=== PATIENT | female | born 1970 ===

== ENCOUNTER 2017-03-03 14:20 | Inpatient (IN) | payer OTHER ==
[2017-03-03] MEDS ORDERED: Vancomycin 1gm in NS 250ml 1 GM/250 ML BAG IVPB STA (15:52)
[2017-03-03] MEDS ORDERED: Sodium Chloride 0.9% 1,000 ML IV SCH (15:52)
[2017-03-03 16:28] LABS: VENOUS BLOOD GAS BASE EXCESS 4.8 mmol/L (0.0-2.0); VENOUS BLOOD PH 7.28 (7.32-7.43)
[2017-03-03 16:30] LABS: BASO # 0.02 K/mm3 (0.0-2.0); BASO % 0.2 % (0.0-3.0); EOS # 0.1 (0.0-0.7); GRAN # 5.86 (1.4-6.5); GRAN % 65.1 % (50.0-68.0); HEMATOCRIT 42.8 % (36.0-48.0); LYMPH # 2.5 (1.2-3.4); LYMPH % 27.9 % (22.0-35.0); MEAN CORPUSCULAR HGB CONC 33.6 g/dl (31.0-37.0); MEAN PLATELET VOLUME 9.6 fl (7.0-11.0); MONO # 0.5 (0.1-0.6); MONO % 5.8 % (1.0-6.0); RED CELL DISTRIBUTION WIDTH 12.1 % (11.5-14.5)
[2017-03-03 16:39] LABS: ALB/GLOB RATIO 1.1 (1.1-1.8); ALKALINE PHOSPHATASE 108 U/L (38-133); ALT/SGPT 60 U/L (7-56); AST/SGOT 46 U/L (15-39); BILIRUBIN,TOTAL 0.3 mg/dL (0.2-1.3); BLOOD UREA NITROGEN 11 mg/dL (7-21); CALCIUM 9.9 mg/dL (8.4-10.5); CARBON DIOXIDE 29 mmol/L (21-33); CHLORIDE 102 mmol/L (98-107); GFR AFRICAN-AMERICAN > 60; GLUCOSE,RANDOM 78 mg/dL (70-110); POTASSIUM 3.9 mmol/L (3.6-5.0); SODIUM 143 mmol/L (132-148); TOTAL PROTEIN 8.9 g/dL (5.8-8.3)
[2017-03-03 16:40] LABS: INR 0.88 (0.93-1.08); PARTIAL THROMBOPLASTIN TIME 25.4 Seconds (23.7-30.8)
--- NOTE | 2017-03-03 17:26 | ED PDOC ---
Arrival/HPI - General Chief Complaint: Abnormal Skin Integrity Time Seen by Provider: 03/03/17 15:16 Historian: Patient - History of Present Illness Narrative History of Present Illness (Text): 03/03/17 17:18 46 yo F with PMH of asthma c/o itchy red rash to b/l hands and forearms that occur every year, however she states that she developed 2 small red painful masses to the dorsal aspect of the L hand. Denies any fever, chills, joint pain , trauma, injury, recent travel, recent sick contact, URI symptoms, sore throat , CP, SOB, cat/dog bit, cat scratch. PMD [place] Past Medical History - Provider Review Nursing Documentation Reviewed: Yes - Tetanus Immunization Tetanus Immunization: Up to Date - Cardiac Hx Cardiac Disorders: No - Pulmonary Hx Asthma: Yes - Neurological Hx Neurological Disorder: No - HEENT Hx HEENT Disorder: No - Renal Other/Comment: kidney infections - Endocrine/Metabolic Hx Endocrine Disorders: No - Hematological/Oncological Hx Blood Disorders: No - Integumentary Hx Dermatological Disorder: No - Musculoskeletal/Rheumatological Hx Musculoskeletal Disorders: Yes Hx Arthritis: Yes - Gastrointestinal Hx Gastrointestinal Disorders: No - Genitourinary/Gynecological Hx Genitourinary Disorders: No - Psychiatric Hx Psychophysiologic Disorder: No Hx Substance Use: No - Surgical History Hx Tubal Ligation: Yes Family/Social History - Physician Review Nursing Documentation Reviewed: Yes Family/Social History: No Known Family HX Smoking Status: Light Smoker < 10 Cigarettes Daily Hx Alcohol Use: Yes Frequency of alcohol use: Socially Hx Substance Use: No Allergies/Home Meds Allergies/Adverse Reactions: Allergies iodine Allergy (Severe, Verified 03/03/17 14:52) ANAPHYLAXIS Penicillins Allergy (Severe, Verified 03/03/17 14:53) RASH banana Allergy (Verified 03/03/17 14:53) NAUSEA coffee (Coffea arabica) Allergy (Verified 03/03/17 14:53) NAUSEA Home Medications: Home Meds Medication Instructions Recorded Confirmed Gluc/Rudy-MSM#2/C/D3/Ubaldo/Born 1 tab PO DAILY 03/03/17 03/03/17 [[id number]-ZPW Tab] Vitamin B Complex [B Complex] 1 tab PO DAILY 03/03/17 03/03/17 Review of Systems - Review of Systems Constitutional: Normal. absent: Fatigue, Weight Change, Fevers Respiratory: Normal. absent: SOB, Cough, Sputum Cardiovascular: Normal. absent: Chest Pain, Palpitations, Edema Musculoskeletal: Normal. absent: Arthralgias, Back Pain, Neck Pain Skin: Normal, Rash, Abscess. absent: Pruritis, Skin Lesions Physical Exam Vital Signs Reviewed: Yes Vital Signs Temp Pulse Resp BP Pulse Ox 03/03/17 14:45 98.6 F 94 H 18 94/60 L 100 Temperature: Afebrile Blood Pressure: Normal Pulse: Regular Respiratory Rate: Normal Appearance: Positive for: Well-Appearing, Non-Toxic, Comfortable Pain Distress: None Mental Status: Positive for: Alert and Oriented X 3 - Systems Exam Head: Present: Atraumatic, Normocephalic Pupils: Present: PERRL Extroacular Muscles: Present: EOMI Conjunctiva: Present: Normal Mouth: Present: Moist Mucous Membranes Neck: Present: Normal Range of Motion. No: Meningeal Signs, Lymphadenopathy Respiratory/Chest: Present: Clear to Auscultation, Good Air Exchange. No: Respiratory Distress, Accessory Muscle Use, Wheezes, Rhonchi Cardiovascular: Present: Regular Rate and Rhythm, Normal S1, S2. No: Murmurs Back: Present: Normal Inspection. No: CVA Tenderness, Midline Tenderness, Paraspinal Tenderness Upper Extremity: Present: Normal ROM, NORMAL PULSES, Neurovascularly Intact, Capillary Refill < 2s, Norm 2-Pt Discrimination. No: Tenderness, Swelling, Temperature Abnormalties, Deformity Lower Extremity: Present: Normal Inspection, NORMAL PULSES, Normal ROM, Neurovascularly Intact, Capillary Refill < 2 s. No: Edema, Tenderness, Swelling , Erythema, Deformity, Temperature Abnormalties Neurological: Present: GCS=15, CN II-XII Intact, Motor Func Grossly Intact, Normal Sensory Function Skin: Present: Warm, Dry, Rashes (+erythematous lichenified rash to the dorsal aspect of b/l hand and forearm), Normal Color, Abscess (+3cm erythematous tender abscess to the dorsal aspect of the L hand over the 1st - 2nd metacarpal , +2 cm erythematous tender abscess to the dorsal aspect of the L hand over the 1st - 2nd metacarpal with surrounding cellulitis over the dorsal L hand and streaking noted to the volar L forearm ) Medical Decision Making ED Course and Treatment: 03/03/17 17:37 46 yo F with PMH of asthma c/o itchy red rash to b/l hands and forearms that occur every year, however she states that she developed 2 small red painful masses to the dorsal aspect of the L hand. Plan: - Labs - Blood cx - VBG - IVF - Vancomycin IV - XR L hand XR L hand : (-) acute findings, as read by PA. Labs results reviewed, wbc is wnl, lactate is nl. Diagnostic results d/w the pt in great detail. Based on history, exam and diagnostic results plan will be for inpt admission considering the 2 abscess to the dorsal L hand with cellulitis. Patient informed of the need for inpt admission for IV antibiotics and consult with surgery. residential gas heat technician paged and case was discussed. Consult placed to Dr. Callahan. Case d/w Dr. Fischer, agrees with plan for inpt admission. Patient states she fully agrees with and understands further plan and care, I have given the patient opportunity to ask any additional questions. - Lab Interpretations Lab Results: 03/03/17 16:00 03/03/17 16:00 Lab Results 03/03/17 16:00: pO2 22 L, VBG pH 7.28 L, VBG pCO2 70.0 H*, VBG HCO3 34.3 H, VBG Total CO2 36.5 H, VBG O2 Sat (Calc) 42.1, VBG Base Excess 4.8 H, VBG Potassium 3.9, Sodium 142.0, Chloride 105.0, Glucose 79, Lactate 1.0, FiO2 21.0, Venous Blood Potassium 3.9 03/03/17 16:00: PT 9.5 L, INR 0.88 L, APTT 25.4 03/03/17 16:00: WBC 9.0, RBC 4.65, Hgb 14.4, Hct 42.8, MCV 92.0, MCH 31.0, MCHC 33.6, RDW 12.1, Plt Count 314, MPV 9.6, Gran % 65.1, Lymph % (Auto) 27.9, Gilchrist % (Auto) 5.8, Eos % (Auto) 1.0 L, Baso % (Auto) 0.2, Gran # 5.86, Lymph # 2.5, Gilchrist # 0.5, Eos # 0.1, Baso # 0.02 03/03/17 16:00: Sodium 143, Chloride 102, Potassium 3.9, Carbon Dioxide 29, Anion Gap 16, BUN 11, Creatinine 0.6, Est GFR ( Amer) > 60, Est GFR (Non- Af Amer) > 60, Random Glucose 78, Calcium 9.9, Total Bilirubin 0.3, AST 46 H, ALT 60 H, Alkaline Phosphatase 108, Total Protein 8.9 H, Albumin 4.7, Globulin 4.2, Albumin/Globulin Ratio 1.1 - RAD Interpretation Radiology Orders: 03/03/17 15:54 HAND LEFT 3 VIEWS ROUTINE [RAD] Stat - Medication Orders Current Medication Orders: Sodium Chloride (Sodium Chloride 0.9%) 1,000 mls @ 1,000 mls/hr IV .Q1H LY Last Admin: 03/03/17 16:19 Dose: 1,000 mls/hr Vancomycin HCl (Vancomycin 1gm) 1 gm in 250 mls @ 167 mls/hr IVPB STAT STA PRN Reason: Protocol Stop: 03/03/17 17:21 Last Admin: 03/03/17 16:19 Dose: 167 mls/hr Discontinued Medications Ketorolac Tromethamine (Toradol) 30 mg IVP STAT STA Stop: 03/03/17 15:55 Last Admin: 03/03/17 16:19 Dose: 30 mg - PA / ABAP DEVELOPER / Resident Statement MD/DO has reviewed & agrees with the documentation as recorded. Disposition/Present on Arrival - Present on Arrival Any Indicators Present on Arrival: No History of DVT/PE: No History of Uncontrolled Diabetes: No Urinary Catheter: No History of Decub. Ulcer: No History Surgical Site Infection Following: None - Disposition Have Diagnosis and Disposition been Completed?: Yes Diagnosis: Abscess of hand, left, Cellulitis Disposition: HOSPITALIZED Disposition Time: 17:00 Patient Plan: Admission Condition: STABLE Discharge Instructions (ExitCare): Cellulitis (ED) Referrals: Nick Elliott MD [Primary Care Provider] - Follow up with primary Forms: Inc[employer] (Irish)
--- NOTE | 2017-03-03 17:34 | CP.PCM.CON ---
History of Present Illness - History of Present Illness History of Present Illness: General Surgery Consult for Dr. Jameson Hardy, PGY 1 Pt S & E at bedside. 46F w/PMH sig for asthma, arthritis consulted for itching, erythema, and burning in B/L upper extremities from elbow to digits x 1 mo. Pt reports symptoms have been progressively worsening. 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 Pt reports experiencing symptoms like this annually during the summer months, though previous episodes have resolved spontaneously and were painless. Pain not alleviated by Vaseline cream, cortisone cream, and peroxide on the area. Admits anorexia, tingling in left hand. Denies f/c/n/v/d, environmental exposures, changes in ROM of hands/ arms. PMH: Asthma, arthritis PSH: Tubal ligation, salivary gland surgery All: NKDA SH: Admits to 3 cigarettes daily, occasional EtOH use, denies illicit drug use Review of Systems - Review of Systems All systems: reviewed and no additional remarkable complaints except () - Constitutional Constitutional: absent: Chills, Fever - EENT Eyes: absent: Change in Vision - Cardiovascular Cardiovascular: absent: Chest Pain - Respiratory Respiratory: absent: Cough - Gastrointestinal Gastrointestinal: absent: Abdominal Pain, Nausea, Vomiting - Genitourinary Genitourinary: absent: Change in Urinary Stream - Musculoskeletal Musculoskeletal: Limited Range of Motion (of B/L UE) - Integumentary Integumentary: New Lesions, Pruritus, Skin Pain, Sores, Swelling, Wounds - Neurological Neurological: absent: Dizziness Past Patient History - Past Social History Smoking Status: Light Smoker < 10 Cigarettes Daily - CARDIAC Hx Cardiac Disorders: No - PULMONARY Hx Asthma: Yes - NEUROLOGICAL Hx Neurological Disorder: No - HEENT Hx HEENT Problems: No - RENAL Other/Comment: kidney infections - ENDOCRINE/METABOLIC Hx Endocrine Disorders: No - HEMATOLOGICAL/ONCOLOGICAL Hx Blood Disorders: No - INTEGUMENTARY Hx Dermatological Problems: No - MUSCULOSKELETAL/RHEUMATOLOGICAL Hx Musculoskeletal Disorders: Yes Hx Arthritis: Yes - GASTROINTESTINAL Hx Gastrointestinal Disorders: No - GENITOURINARY/GYNECOLOGICAL Hx Genitourinary Disorders: No - PSYCHIATRIC Hx Psychophysiologic Disorder: No Hx Substance Use: No - SURGICAL HISTORY Hx Tubal Ligation: Yes Meds Allergies/Adverse Reactions: Allergies Allergy/AdvReac Type Severity Reaction Status Date / Time iodine Allergy Severe ANAPHYLAXIS Verified 03/03/17 14:52 Penicillins Allergy Severe RASH Verified 03/03/17 14:53 banana Allergy NAUSEA Verified 03/03/17 14:53 coffee (Coffea arabica) Allergy NAUSEA Verified 03/03/17 14:53 - Medications Medications: Current Medications Sodium Chloride (Sodium Chloride 0.9%) 1,000 mls @ 1,000 mls/hr IV .Q1H LY Last Admin: 03/03/17 16:19 Dose: 1,000 mls/hr Physical Exam - Constitutional Appears: Non-toxic, No Acute Distress - Head Exam Head Exam: ATRAUMATIC, NORMAL INSPECTION, NORMOCEPHALIC - Eye Exam Eye Exam: EOMI, Normal appearance. absent: Conjunctival injection - ENT Exam ENT Exam: Mucous Membranes Moist - Neck Exam Neck exam: Positive for: Normal Inspection - Respiratory Exam Respiratory Exam: NORMAL BREATHING PATTERN. absent: Accessory Muscle Use - Cardiovascular Exam Cardiovascular Exam: absent: Bradycardia, Tachycardia - GI/Abdominal Exam GI & Abdominal Exam: Soft. absent: Distended, Guarding, Rebound - Extremities Exam Extremities exam: Positive for: full ROM, normal capillary refill. Negative for : pedal edema Additional comments: non-pitting edema in L hand, R hand without edema - Neurological Exam Neurological exam: Alert, CN II-XII Intact, Oriented x3 Additional comments: sensation intact dermatomes C5 T1, muscle strength 5/5 in R upper extremity and 4/5 in L upper extremity secondary to pain - Psychiatric Exam Psychiatric exam: Normal Affect, Normal Mood - Skin Skin Exam: Dry, Erythema, Urticaria, Warm Additional comments: B/L forearms erythematous from elbows to digits. Several excoriations on both forearms w/o active drainage. Area of induration 0.5cm x 0.5 cm on L 1st digit interspace. Fluctuant lesion 1cm x 1cm on posterior aspect of thenar eminence. Left thenar eminence and forearm exquisitely TTP. Results - Vital Signs Recent Vital Signs: Last Vital Signs Temp 98.6 F 03/03/17 14:45 Pulse 94 H 03/03/17 14:45 Resp 18 03/03/17 14:45 BP 94/60 L 03/03/17 14:45 Pulse Ox 100 03/03/17 14:45 - Labs Result Diagrams: 03/03/17 16:00 03/03/17 16:00 Labs: Laboratory Results - last 24 hr 03/03/17 03/03/17 03/03/17 16:00 16:00 16:00 WBC 9.0 RBC 4.65 Hgb 14.4 Hct 42.8 MCV 92.0 MCH 31.0 MCHC 33.6 RDW 12.1 Plt Count 314 MPV 9.6 Gran % 65.1 Lymph % (Auto) 27.9 [place] % (Auto) 5.8 Eos % (Auto) 1.0 L Baso % (Auto) 0.2 Gran # 5.86 Lymph # 2.5 Republic # 0.5 Eos # 0.1 Baso # 0.02 PT 9.5 L INR 0.88 L APTT 25.4 pO2 VBG pH VBG pCO2 VBG HCO3 VBG Total CO2 VBG O2 Sat (Calc) VBG Base Excess VBG Potassium Sodium 143 Chloride 102 Glucose Lactate FiO2 Potassium 3.9 Carbon Dioxide 29 Anion Gap 16 BUN 11 Creatinine 0.6 Est GFR ( Amer) > 60 Est GFR (Non-Af Amer) > 60 Random Glucose 78 Calcium 9.9 Total Bilirubin 0.3 AST 46 H ALT 60 H Alkaline Phosphatase 108 Total Protein 8.9 H Albumin 4.7 Globulin 4.2 Albumin/Globulin Ratio 1.1 Venous Blood Potassium 03/03/17 16:00 WBC RBC Hgb Hct MCV MCH MCHC RDW Plt Count MPV Gran % Lymph % (Auto) [place] % (Auto) Eos % (Auto) Baso % (Auto) Gran # Lymph # Republic # Eos # Baso # PT INR APTT pO2 22 L VBG pH 7.28 L VBG pCO2 70.0 H* VBG HCO3 34.3 H VBG Total CO2 36.5 H VBG O2 Sat (Calc) 42.1 VBG Base Excess 4.8 H VBG Potassium 3.9 Sodium 142.0 Chloride 105.0 Glucose 79 Lactate 1.0 FiO2 21.0 Potassium Carbon Dioxide Anion Gap BUN Creatinine Est GFR ( Amer) Est GFR (Non-Af Amer) Random Glucose Calcium Total Bilirubin AST ALT Alkaline Phosphatase Total Protein Albumin Globulin Albumin/Globulin Ratio Venous Blood Potassium 3.9 Assessment & Plan - Assessment and Plan (Free Text) Assessment: 46 yo F PMH: asthma, arthritis, consulted for L forearm abscess secondary to cellulitis. Plan: No surgical intervention at this time Abx Pain mgmt Warm compresses to area OT for hand Will monitor DW attending. Hayley, PGY 1 - Date & Time Date: 03/03/17 Time: 17:41
--- NOTE | 2017-03-03 18:26 | RAD ---
PROCEDURE: Left Hand Radiographs. HISTORY: pain COMPARISON: None. FINDINGS: BONES: Normal mineralization alignment. No acute fracture. JOINTS: Normal. No osteoarthritic changes. SOFT TISSUES: Normal. OTHER FINDINGS: None. IMPRESSION: No acute fracture or dislocation.
[2017-03-03] MEDS ORDERED: DiphenhydrAMINE 12.5 mg/5 ml LIQ UD (5 ml) PO STA (18:28)
[2017-03-03] MEDS ORDERED: Sodium Chloride 0.9% 1,000 ML IV STA (18:39)
--- NOTE | 2017-03-03 19:39 | CP.PCM.CON ---
History of Present Illness - History of Present Illness History of Present Illness: Infectious Disease Consultation: March 03, 2017 46 yo female with swelling, erythema, and pain to the left hand, wrist, and forearm. There is an ezcematous rash on the left arm as well. The patient has difficulty bending at the wrist as well. The patient has a penicillin allergy which leads to rashes. The cellulitis started about 3 days ago with developing pain. PMHx: asthma, arthritis PSHx: tubal ligation, salivary gland surgery. Allergies: PCN, shellfish, banana, coffee (Coffea Arabica), Iodine Social Hx: Tobacco use 3 cig/day for at least 30 years. No illicit drugs Social EtOH Active Medications Diphenhydramine HCl (Benadryl) 25 mg PO Q6H PRN PRN Reason: Allergy symptoms Doxycycline Hyclate 100 mg/ (Sodium Chloride) 100 mls @ 100 mls/hr IVPB Q12 LY PRN Reason: Protocol Vancomycin HCl (Vancomycin 1gm) 1 gm in 250 mls @ 167 mls/hr IVPB Q24H LY PRN Reason: Protocol Sodium Chloride (Sodium Chloride 0.9%) 1,000 mls @ 1,000 mls/hr IV .Q1H STA Stop: 03/03/17 19:38 Ibuprofen (Motrin Tab) 200 mg PO Q6 PRN PRN Reason: Pain, moderate (4-7) Pantoprazole Sodium (Protonix Ec Tab) 40 mg PO 0600 [facility] Family Hx: asth,a arthritis ROS: No fevers, chills, nausea, vomiting, diarrhea, headaches, dizziness, chest pain , abdominal pain, melena, hematuria, hematemesis, hematochezia, depression, anxiety. Past Patient History - Tetanus Immunizations Tetanus Immunization: Up to Date - Past Social History Smoking Status: Light Smoker < 10 Cigarettes Daily - CARDIAC Hx Cardiac Disorders: No - PULMONARY Hx Asthma: Yes - NEUROLOGICAL Hx Neurological Disorder: No - HEENT Hx HEENT Problems: No - RENAL Other/Comment: kidney infections - ENDOCRINE/METABOLIC Hx Endocrine Disorders: No - HEMATOLOGICAL/ONCOLOGICAL Hx Blood Disorders: No - INTEGUMENTARY Hx Dermatological Problems: No - MUSCULOSKELETAL/RHEUMATOLOGICAL Hx Musculoskeletal Disorders: Yes Hx Arthritis: Yes - GASTROINTESTINAL Hx Gastrointestinal Disorders: No - GENITOURINARY/GYNECOLOGICAL Hx Genitourinary Disorders: No - PSYCHIATRIC Hx Psychophysiologic Disorder: No Hx Substance Use: No - SURGICAL HISTORY Hx Tubal Ligation: Yes Meds Allergies/Adverse Reactions: Allergies Allergy/AdvReac Type Severity Reaction Status Date / Time iodine Allergy Severe ANAPHYLAXIS Verified 03/03/17 14:52 Penicillins Allergy Severe RASH Verified 03/03/17 14:53 banana Allergy NAUSEA Verified 03/03/17 14:53 coffee (Coffea arabica) Allergy NAUSEA Verified 03/03/17 14:53 - Medications Medications: Current Medications Diphenhydramine HCl (Benadryl) 25 mg PO Q6H PRN PRN Reason: Allergy symptoms Doxycycline Hyclate 100 mg/ (Sodium Chloride) 100 mls @ 100 mls/hr IVPB Q12 LY PRN Reason: Protocol Vancomycin HCl (Vancomycin 1gm) 1 gm in 250 mls @ 167 mls/hr IVPB Q24H LY PRN Reason: Protocol Sodium Chloride (Sodium Chloride 0.9%) 1,000 mls @ 1,000 mls/hr IV .Q1H STA Stop: 03/03/17 19:38 Ibuprofen (Motrin Tab) 200 mg PO Q6 PRN PRN Reason: Pain, moderate (4-7) Pantoprazole Sodium (Protonix Ec Tab) 40 mg PO 0600 LY Physical Exam - Constitutional Appears: Non-toxic, No Acute Distress - Head Exam Head Exam: ATRAUMATIC, NORMOCEPHALIC - Eye Exam Eye Exam: EOMI, PERRL Pupil Exam: NORMAL ACCOMODATION, PERRL - ENT Exam ENT Exam: Mucous Membranes Moist, Normal External Ear Exam, TM's Normal Bilaterally - Neck Exam Neck exam: Positive for: Full Rom, Normal Inspection - Respiratory Exam Respiratory Exam: Clear to Auscultation Bilateral, NORMAL BREATHING PATTERN. absent: Rales, Rhonchi, Wheezes - Cardiovascular Exam Cardiovascular Exam: REGULAR RHYTHM, RRR, +S1, +S2 - GI/Abdominal Exam GI & Abdominal Exam: Normal Bowel Sounds, Soft. absent: Distended, Tenderness - Extremities Exam Additional comments: left arm with limited ROM of the left wrist and to a lesser degree the left elbow. There is swelling, erythema, warmth, and tenderness of the left forearm , wrist, and hand (especially at the thenar eminence). The patient has a prominent swelling of the thenar eminence. - Neurological Exam Neurological exam: Alert, CN II-XII Intact, Normal Gait, Oriented x3 - Psychiatric Exam Psychiatric exam: Normal Affect, Normal Mood - Skin Additional comments: as per extremity exam. Results - Vital Signs Recent Vital Signs: Last Vital Signs Temp 98.6 F 03/03/17 14:45 Pulse 93 H 03/03/17 18:35 Resp 18 03/03/17 18:35 BP 104/65 03/03/17 18:35 Pulse Ox 100 03/03/17 18:35 - Labs Result Diagrams: 03/03/17 16:00 03/03/17 16:00 Assessment & Plan - Assessment and Plan (Free Text) Assessment: 46 yo female with cellulitis and possible abscess of thenar eminence of the left hand with tracking up the arm. The patient has a PCN allergy. The patient was started on IV Vancomycin for treatment. Local wound care. No surgical intervention as per surgery consult. Supportive care. Thank you for allowing me to participate in the care of the patient, we will follow with you.
[2017-03-03 21:36] VITALS: BMI 26.5
[2017-03-03] MEDS ORDERED: Pneumococcal 23-Valent Vaccine IM ONE (21:36)
[2017-03-03] MEDS: DiphenhydrAMINE 12.5 mg/5 ml LIQ UD (5 ml) PO PRN (22:15)
--- NOTE | 2017-03-03 23:24 | CP.PCM.HP ---
<Mahin Elena - Last Filed: 03/03/17 23:16> History of Present Illness - History of Present Illness History of Present Illness: Internal Medicine Note for Dr. Fung - MERI DO PGY 1 HPI: 46 F w/o pertinent signifcant PMHx presents with c/o b/l UE rash, more severe on the left. Patient states that she has a rash on b/l forearms. She states that she gets this same rash every year in the summer time and attributes it to sunlight. Patient states that the rash is both pruritic and painful, and that she has been using OTC steroid cream which has provided some relief. Patient further complains of a rash on her L hand that is more painful and irritating than the rash on her b/l LE. Patient states that this rash is not consistent with her usual rash on her b/l forearms that she gets every year. Patient states that the hand rash has not gotten better with topical steroid cream and that it is extremely tender to touch. She further states that the rash started about a week ago. Patient denies any sick contacts, denies f/ch/n/ v/d/cp/sob, and any other symptoms at this time. PSHx: B/l oophorectomy; neck surgery, uncertain of the details PMHx: Asthma, Arthritis All: PCNs, seafood, banana, coffee, iodine SocHx: Smokes 3 cigarettes a day, drinks alcohol only on Saturdays. Denies any illicits FamHx: DM, Arthritis, Asthma Meds: B12 ROS: Constitutional: pt denies fever, chills, generalized weakness ENT: pt denies dysphagia, otalgia, hearing deficit, rhinorrhea Eyes: pt denies sudden loss of vision, diplopia, blurred vision MSK: +HPI Cardio: pt denies sob, heart murmur, cp Pulm: pt denies cough, hemoptysis, wheeze GI: pt denies loss of appetite, abdominal pain, constipation, melena, n/v/d : pt denies burning on urination, urinary frequency, hematuria, urinary urgency Neuro: pt denies paresis, paresthesia, dizziness, miller, numbness, tingling Derm: pt denies skin changes, lesions, nail changes Endo: pt denies intolerance to heat/cold, diaphoresis, night sweats, polydipsia Psych: pt denies anxiety, depression, mood changes Present on Admission - Present on Admission Any Indicators Present on Admission: No Past Patient History - Tetanus Immunizations Tetanus Immunization: Up to Date - Past Social History Smoking Status: Light Smoker < 10 Cigarettes Daily - CARDIAC Hx Cardiac Disorders: No - PULMONARY Hx Asthma: Yes - NEUROLOGICAL Hx Neurological Disorder: No - HEENT Hx HEENT Problems: No - RENAL Other/Comment: kidney infections - ENDOCRINE/METABOLIC Hx Endocrine Disorders: No - HEMATOLOGICAL/ONCOLOGICAL Hx Blood Disorders: No - INTEGUMENTARY Hx Dermatological Problems: Yes Other/Comment: rash to both forearms and hands, left hand swelling with 2 red raised swollen areas to hand, rash is itchy, chronic every summer since 30 years old, first time left hand is swollen, red line from wrist up forrearm numbness to fingers and arm - MUSCULOSKELETAL/RHEUMATOLOGICAL Hx Musculoskeletal Disorders: Yes Hx Arthritis: Yes (b/l wrists, left elbow, knees, feet) Hx Falls: No - GASTROINTESTINAL Hx Gastrointestinal Disorders: No - GENITOURINARY/GYNECOLOGICAL Hx Genitourinary Disorders: No - PSYCHIATRIC Hx Psychophysiologic Disorder: No Hx Substance Use: No - SURGICAL HISTORY Hx Surgeries: Yes (tubal ligation) Meds Allergies/Adverse Reactions: Allergies Allergy/AdvReac Type Severity Reaction Status Date / Time iodine Allergy Severe ANAPHYLAXIS Verified 03/03/17 14:52 Penicillins Allergy Severe RASH Verified 03/03/17 14:53 banana Allergy NAUSEA Verified 03/03/17 14:53 coffee (Coffea arabica) Allergy NAUSEA Verified 03/03/17 14:53 Physical Exam - Additional Findings Additional findings: Phys Exam: VS as below Constitutional: Pt appears fidgety and restless; Loquacious; Pleasant but dramatic affect; a&o x 4, nad Head and Neck: +Red, pruritic rash that crosses midline on her neck; neck supple , no jvd, trachea midline, carotid midline, no cervical/head mass Eyes: mireya, nonicteric sclera, eom intact ENT: auditory acuity grossly intact, throat not congested, no nasal deformity Cardio: rrr, no m/r/g, no carotid bruit, nml s1, s2 Pulm: no accessory muscle use, equal nml breath sounds bilaterally, ctab Abd: s/nt/nd, nbs x 4 q, no palpable masses Derm: +See extremity exam Extr: B/l UE red, peeling rash resembling sunburn on forearms. Left hand has a nodule on the dorsal aspect of the first digit. No purulent discharge, no fluctuance. Neuro: cn II-XII grossly intact, ue and le 5/5 muscle strength bilaterally, no los ue, le bilaterally and core Results - Vital Signs Recent Vital Signs: Last Vital Signs Temp 97.9 F 03/03/17 21:20 Pulse 70 03/03/17 21:20 Resp 20 03/03/17 21:20 BP 150/89 03/03/17 21:20 Pulse Ox 100 03/03/17 19:27 - Labs Result Diagrams: 03/03/17 16:00 03/03/17 16:00 Assessment & Plan - Assessment and Plan (Free Text) Assessment: 46 F presents for evaluation of b/l UE rash and L hand rash Plan: 1. Cellulitis VS Heat rash - XR: shows no fracture or acute disease - Benadryl ordered for rash and in case of allergy to any medications - Vanc, Doxy empiric treatment - Pain mgmt: Ibuprofen 200 - ID C/s: Dr. Overton 2. Hx/O Asthma - Duonebs Q6H LY and Q2H PRN - ABG showed respiratory acidosis with metabolic compensation - Does not correlate clinically. Re-ordered - UDS ordered as well 3. Hx/O Arthritis - C/w home glucosamine - VICTOR HUGO, RF ordered in light of her photosensitive rash and hx/o arthritis 4. Hx/O Hypovitaminosis B12 - C/w home B12 5. Hx/O Hep C - No acute intervention - LFT's elevated - trend - Abdominal u/s 6. GI/DVT PPHXS - SCDs/Protonix Dispo: If patient's rash responds to ABx, consider d/c tomorrow, 03/03/17 on PO Clindamycin Diet: Normal Case d/w Dr. Fung TKS, DO PGY - 1 <Laura Fung - Last Filed: 03/04/17 11:16> Results - Vital Signs Recent Vital Signs: Last Vital Signs Temp 98.5 F 03/04/17 08:00 Pulse 70 03/04/17 08:00 Resp 18 03/04/17 08:00 BP 132/95 H 03/04/17 08:00 Pulse Ox 98 03/04/17 08:00 - Labs Result Diagrams: 03/04/17 08:20 03/04/17 08:20 Labs: Laboratory Results - last 24 hr 03/04/17 03/04/17 08:20 08:20 WBC 7.4 RBC 4.06 Hgb 12.1 D Hct 36.7 MCV 90.4 MCH 29.8 MCHC 33.0 RDW 11.9 Plt Count 234 MPV 9.6 Gran % 53.1 Lymph % (Auto) 37.7 H Izard % (Auto) 7.1 H Eos % (Auto) 1.8 Baso % (Auto) 0.3 Gran # 3.91 Lymph # 2.8 Izard # 0.5 Eos # 0.1 Baso # 0.02 Sodium 141 Potassium 3.8 Chloride 107 Carbon Dioxide 24 Anion Gap 14 BUN 9 Creatinine 0.5 Est GFR ( Amer) > 60 Est GFR (Non-Af Amer) > 60 Random Glucose 82 Calcium 8.3 L Phosphorus 3.8 Magnesium 1.8 Total Bilirubin 0.3 AST 31 ALT 42 Alkaline Phosphatase 89 Total Protein 6.9 Albumin 3.6 Globulin 3.3 Albumin/Globulin Ratio 1.1 Attending/Attestation - Attestation I have personally seen and examined this patient.: Yes I have fully participated in the care of the patient.: Yes I have reviewed all pertinent clinical information: Yes Notes (Text): 03/03/17 46 year old female with past medical history of arthritis and asthma who presents with bilateral upper extremity rash and left hand cellulitis. ID and surgery evaluation are requested. Hand xray shows no fracture or acute disease. Will start on iv antibiotics. She had mild elevation of LFTs. Admits to drinking socially. Will obtain alcohol level, urine drug screen and hepatitis panel. Continue to monitor LFTs closely. Continue with duonebs prn for history of asthma. Laura Fung MD Hospitalist.
[2017-03-03] MEDS ORDERED: Albuterol-Ipratrop 3 mg / 0.5 (3 ml) UD IH PRN (23:36)
[2017-03-04] MEDS: Albuterol-Ipratrop 3 mg / 0.5 (3 ml) UD IH SCH ×4 (01:05→20:00)
[2017-03-04] MEDS: DiphenhydrAMINE 12.5 mg/5 ml LIQ UD (5 ml) PO PRN (04:46)
[2017-03-04] MEDS: Vancomycin 1gm in NS 250ml 1 GM/250 ML BAG IVPB SCH (05:16)
--- NOTE | 2017-03-04 07:16 | CP.PCM.PN ---
Subjective - Date & Time of Evaluation Date of Evaluation: 03/04/17 Time of Evaluation: 07:16 - Subjective Subjective: General Surgery Dr. Callahan Pt S&E @bedside. NAEO. pain, erythema improved. admits to tingling digits 1-3, pruritus. denies F/C, N/V, D/C. denies decreased ROM. tolerating diet. Objective - Vital Signs/Intake and Output Vital Signs (last 24 hours): Temp Pulse Resp BP Pulse Ox 97.9 F 70 20 150/89 100 03/03/17 21:20 03/03/17 21:20 03/03/17 21:20 03/03/17 21:20 03/03/17 19:27 Intake and Output: 03/04/17 03/04/17 06:59 18:59 Intake Total 120 Balance 120 - Medications Medications: Current Medications Albuterol/Ipratropium (Duoneb 3 Mg/0.5 Mg (3 Ml) Ud) 3 ml IH [id number] LY Last Admin: 03/04/17 01:05 Dose: 3 ml Albuterol/Ipratropium (Duoneb 3 Mg/0.5 Mg (3 Ml) Ud) 3 ml IH Q2H PRN PRN Reason: Shortness of Breath Diphenhydramine HCl (Benadryl) 25 mg PO Q6H PRN PRN Reason: Allergy symptoms Last Admin: 03/04/17 04:46 Dose: 25 mg Doxycycline Hyclate 100 mg/ (Sodium Chloride) 100 mls @ 100 mls/hr IVPB Q12 LY PRN Reason: Protocol Last Admin: 03/03/17 22:14 Dose: 100 mls/hr Vancomycin HCl (Vancomycin 1gm) 1 gm in 250 mls @ 167 mls/hr IVPB Q24H LY PRN Reason: Protocol Last Admin: 03/04/17 05:16 Dose: 167 mls/hr Ibuprofen (Motrin Tab) 200 mg PO Q6 PRN PRN Reason: Pain, moderate (4-7) Last Admin: 03/04/17 04:46 Dose: 200 mg Non-Formulary Medication (Gluc/Rudy-Msm#2/C/D3/Ubaldo/Born [Glucosamin-Chondroitin -Msm Tab]) 1 tab PO DAILY [facility] Pantoprazole Sodium (Protonix Ec Tab) 40 mg PO 0600 [facility] Vitamin B Complex/Vit C/Folic Acid (Nephro-Juan) 1 tab PO DAILY LY - Labs Labs: PT 9.5 Seconds (9.9-11.8) L 03/03/17 16:00 INR 0.88 (0.93-1.08) L 03/03/17 16:00 APTT 25.4 Seconds (23.7-30.8) 03/03/17 16:00 - Constitutional Appears: Non-toxic, No Acute Distress - Head Exam Head Exam: NORMAL INSPECTION - Eye Exam Eye Exam: Normal appearance - ENT Exam ENT Exam: Mucous Membranes Moist - Respiratory Exam Respiratory Exam: NORMAL BREATHING PATTERN. absent: Accessory Muscle Use, Respiratory Distress - GI/Abdominal Exam GI & Abdominal Exam: Soft. absent: Distended - Extremities Exam Additional comments: L forearm cellulitis, erythema, excoriations. lesion x2 L thumb. indurated, no fluctuance. edema of L hand - Neurological Exam Neurological Exam: Alert, Awake, Oriented x3 - Psychiatric Exam Psychiatric exam: Normal Affect, Normal Mood - Skin Skin Exam: Dry, Intact, Warm Assessment and Plan - Assessment and Plan (Free Text) Assessment: 46 y/o F w/ L forearm cellulitis and L hand lesions - cont warm compresses - cont IV abx - Benadryl for pruritus - pain management - cont medical mamagement - no surgical intervention at this time Pt discussed w/ Dr. London Sawyer DO PGY2
--- NOTE | 2017-03-04 08:01 | CP.PCM.PN ---
<Jolly Biswas - Last Filed: 03/04/17 15:43> Subjective - Date & Time of Evaluation Date of Evaluation: 03/04/17 Time of Evaluation: 08:30 - Subjective Subjective: PGY2 Progress note for Dr. Fung Patient seen and examined at bedside. Patient reports left hand swelling is worsening and she continues to have decreased rn palliative strength and pruritus. She continues to have pain with hand flexion. She denies fever, chills, headache, dizziness, chest pain, palpitations, SOB, cough, abdominal pain, nausea, vomiting, bowel/bladder complaints, pain/swelling in her legs bilaterally. Patient is tolerating diet. Objective - Vital Signs/Intake and Output Vital Signs (last 24 hours): Temp Pulse Resp BP Pulse Ox 98.5 F 70 18 132/95 H 98 03/04/17 08:00 03/04/17 08:00 03/04/17 08:00 03/04/17 08:00 03/04/17 08:00 Intake and Output: 03/04/17 03/04/17 06:59 18:59 Intake Total 120 Balance 120 - Medications Medications: Current Medications Albuterol/Ipratropium (Duoneb 3 Mg/0.5 Mg (3 Ml) Ud) 3 ml IH [id number] LY Last Admin: 03/04/17 07:57 Dose: 3 ml Albuterol/Ipratropium (Duoneb 3 Mg/0.5 Mg (3 Ml) Ud) 3 ml IH Q2H PRN PRN Reason: Shortness of Breath Diphenhydramine HCl (Benadryl) 25 mg PO Q6H PRN PRN Reason: Allergy symptoms Last Admin: 03/04/17 04:46 Dose: 25 mg Doxycycline Hyclate 100 mg/ (Sodium Chloride) 100 mls @ 100 mls/hr IVPB Q12 LY PRN Reason: Protocol Last Admin: 03/03/17 22:14 Dose: 100 mls/hr Vancomycin HCl (Vancomycin 1gm) 1 gm in 250 mls @ 167 mls/hr IVPB Q24H LY PRN Reason: Protocol Last Admin: 03/04/17 05:16 Dose: 167 mls/hr Ibuprofen (Motrin Tab) 200 mg PO Q6 PRN PRN Reason: Pain, moderate (4-7) Last Admin: 03/04/17 04:46 Dose: 200 mg Non-Formulary Medication (Gluc/Rudy-Msm#2/C/D3/Ubaldo/Born [Glucosamin-Chondroitin -Msm Tab]) 1 tab PO DAILY [facility] 234 BEDS AT [facility] Pantoprazole Sodium (Protonix Ec Tab) 40 mg PO 0600 [facility]S [facility]CLUDE 234 BEDS AT [facility] Vitamin B Complex/Vit C/Folic Acid (Nephro-Juan) 1 tab PO DAILY LY - Labs Labs: PT 9.5 Seconds (9.9-11.8) L 03/03/17 16:00 INR 0.88 (0.93-1.08) L 03/03/17 16:00 APTT 25.4 Seconds (23.7-30.8) 03/03/17 16:00 - Additional Findings Additional findings: VS as below Constitutional: Pt appears fidgety and restless; Loquacious; Pleasant but dramatic affect; a&o x 4, nad Head and Neck: +Red, pruritic rash that crosses midline on her neck; neck supple , no jvd, trachea midline, carotid midline, no cervical/head mass Eyes: mireya, nonicteric sclera, eom intact ENT: auditory acuity grossly intact, throat not congested, no nasal deformity Cardio: rrr, no m/r/g, no carotid bruit, nml s1, s2 Pulm: no accessory muscle use, equal nml breath sounds bilaterally, ctab Abd: s/nt/nd, nbs x 4 q, no palpable masses Derm: +See extremity exam Extr: B/l UE red, peeling rash resembling sunburn on forearms. Left hand has a nodule on the dorsal aspect of the first digit. No purulent discharge, no fluctuance. Neuro: cn II-XII grossly intact, ue and le 5/5 muscle strength bilaterally, no los ue, le bilaterally and core Assessment and Plan - Assessment and Plan (Free Text) Assessment: 46 year old female PMHx asthma, arthritis presented with b/l UE rash worse on the Left Plan: Left hand cellulitis - Vancomycin 1gm ivpb q24 Day 1 - Doxycycline 100mg ivpb q12 Day 2 - Motrin 200mg po q6 prn pain - Benadryl 25mg po q6 prn pruritus - Florastor 1 cap po bid - Left Hand x-ray 03/03: no acute fracture/dislocation - Patient for I&D today- will f/u wound studies - Surgery Dr. Callahan consulted - ID Dr. Overton consulted Hx of Asthma - Duoneb 3ml inh q6 LY - Duoneb 3ml inh q2 prn Hx of Arthritis - Glucosamine 1 tab po daily - VICTOR HUGO, RF ordered in light of her photosensitive rash and hx/o arthritis Hx of Hep C - Hep C Ab + - LFT's elevated - trend - f/u Abdominal u/s - f/u UDS GI ppx: Protonix 40mg po daily DVT ppx: SCDs Diet: Regular diet Discussed with Dr. Kenton Biswas PGY2 <Laura Fung - Last Filed: 03/04/17 16:16> Objective - Vital Signs/Intake and Output Vital Signs (last 24 hours): Temp Pulse Resp BP Pulse Ox 98.5 F 70 18 132/95 H 98 03/04/17 08:00 03/04/17 08:00 03/04/17 08:00 03/04/17 08:00 03/04/17 08:00 Intake and Output: 03/04/17 03/04/17 06:59 18:59 Intake Total 120 600 Balance 120 600 - Medications Medications: Current Medications Albuterol/Ipratropium (Duoneb 3 Mg/0.5 Mg (3 Ml) Ud) 3 ml IH [id number] LY Last Admin: 03/04/17 13:56 Dose: 3 ml Albuterol/Ipratropium (Duoneb 3 Mg/0.5 Mg (3 Ml) Ud) 3 ml IH Q2H PRN PRN Reason: Shortness of Breath Diphenhydramine HCl (Benadryl) 25 mg PO Q6H PRN PRN Reason: Allergy symptoms Last Admin: 03/04/17 04:46 Dose: 25 mg Doxycycline Hyclate 100 mg/ (Sodium Chloride) 100 mls @ 100 mls/hr IVPB Q12 LY PRN Reason: Protocol Last Admin: 03/04/17 09:33 Dose: 100 mls/hr Vancomycin HCl (Vancomycin 1gm) 1 gm in 250 mls @ 167 mls/hr IVPB Q24H LY PRN Reason: Protocol Last Admin: 03/04/17 05:16 Dose: 167 mls/hr Ibuprofen (Motrin Tab) 200 mg PO Q6 PRN PRN Reason: Pain, moderate (4-7) Last Admin: 03/04/17 04:46 Dose: 200 mg Lactobacillus Acidophilus (Bacid Acidophilus) 1 cap PO BID COUNTS INCLUDE 234 BEDS AT THE [facility] Non-Formulary Medication (Gluc/Rudy-Msm#2/C/D3/Ubaldo/Born [Glucosamin-Chondroitin -Msm Tab]) 1 tab PO DAILY LY Last Admin: 03/04/17 09:34 Dose: Not Given Pantoprazole Sodium (Protonix Ec Tab) 40 mg PO 0600 COUNTS [facility]CLUDE 234 BEDS AT [facility] Vitamin B Complex/Vit C/Folic Acid (Nephro-Juan) 1 tab PO DAILY LY Last Admin: 03/04/17 09:34 Dose: 1 tab - Labs Labs: 03/04/17 08:20 03/04/17 08:20 PT 9.5 Seconds (9.9-11.8) L 03/03/17 16:00 INR 0.88 (0.93-1.08) L 03/03/17 16:00 APTT 25.4 Seconds (23.7-30.8) 03/03/17 16:00 Attending/Attestation - Attestation I have personally seen and examined this patient.: Yes I have fully participated in the care of the patient.: Yes I have reviewed all pertinent clinical information, including history, physical exam and plan: Yes Notes (Text): 03/04/17 16:13 46 year old female with past medical history of arthritis and asthma who presents with bilateral upper extremity rash and left hand cellulitis. She is on iv antibiotics. ID and surgery are following the patient. Patient is for I&D this afternoon. Will follow up on cultures. Her LFTs have improved. She is positive for hepatitis C ab. Findings were discussed with patient and advised outpatient follow up with pmd and [facility] hepatitis clinic. Continue with robyn prn for history of asthma. Laura Fung MD Hospitalist.
[2017-03-04 08:42] LABS: BASO # 0.02 K/mm3 (0.0-2.0); BASO % 0.3 % (0.0-3.0); EOS # 0.1 (0.0-0.7); EOS % 1.8 % (1.5-5.0); GRAN # 3.91 (1.4-6.5); GRAN % 53.1 % (50.0-68.0); HEMATOCRIT 36.7 % (36.0-48.0); LYMPH # 2.8 (1.2-3.4); LYMPH % 37.7 % (22.0-35.0); MEAN CELL VOLUME 90.4 fl (80.0-105.0); MEAN CORPUSCULAR HEMOGLOBIN 29.8 pg (25.0-35.0); MEAN PLATELET VOLUME 9.6 fl (7.0-11.0); MONO # 0.5 (0.1-0.6); MONO % 7.1 % (1.0-6.0); RED CELL DISTRIBUTION WIDTH 11.9 % (11.5-14.5); WHITE BLOOD COUNT 7.4 10^3/ul (4.5-11.0)
[2017-03-04 09:05] LABS: ALB/GLOB RATIO 1.1 (1.1-1.8); ALKALINE PHOSPHATASE 89 U/L (38-133); ALT/SGPT 42 U/L (7-56); AST/SGOT 31 U/L (15-39); BILIRUBIN,TOTAL 0.3 mg/dL (0.2-1.3); BLOOD UREA NITROGEN 9 mg/dL (7-21); CALCIUM 8.3 mg/dL (8.4-10.5); CARBON DIOXIDE 24 mmol/L (21-33); CHLORIDE 107 mmol/L (98-107); GFR AFRICAN-AMERICAN > 60; GLUCOSE,RANDOM 82 mg/dL (70-110); MAGNESIUM 1.8 mg/dL (1.7-2.2); PHOSPHOROUS 3.8 mg/dL (2.5-4.5); POTASSIUM 3.8 mmol/L (3.6-5.0); SODIUM 141 mmol/L (132-148); TOTAL PROTEIN 6.9 g/dL (5.8-8.3)
[2017-03-04] MEDS: Multivitamin Vitamin B Complex (Nephro-Vite) Tab PO SCH (09:34)
[2017-03-04] MEDS ORDERED: Morphine 4 mg/ml ISec IVP STA (13:03)
--- NOTE | 2017-03-04 13:17 | CP.PCM.PCO ---
Physician Communication Note - Physician Communication Note Physician Communication Note: Bedside I&D Procedures - Time-Out Type of Procedure: incision and drainage Site of Procedure: L hand Correct Patient: Yes Correct Procedure: Yes Correct Site Marked: Yes X-Ray Marked: NA Medication Recon: Yes Physician Name: Dr. Callahan; Dr. Sawyer PGY2 - Incision and Drainage Site: L hand Blade Size: 11 I & D Procedure: betadine prep, sterile drapes applied, sterile dressing applied Progress: verbal consent obtained. Pt prepped and draped in sterile fashion. 5cc 1% lidocaine injected around abscess. puncture made w/ #11 blade over apex of lesion. ~3cc purulent material expressed. Wound culture obtained. lesion was explored w/ clamp. 4x4 and tape applied to incision. Pt tolerated procedure well.
[2017-03-04] MEDS: Lactobacillus Acidophilus 500 MU Cap PO SCH (17:58)
--- NOTE | 2017-03-04 18:51 | CP.PCM.PN ---
Subjective - Date & Time of Evaluation Date of Evaluation: 03/04/17 Time of Evaluation: 16:45 - Subjective Subjective: Infectious Disease Follow Up: March 04, 2017 46 yo female with swelling, erythema, and pain to the left hand, wrist, and forearm. There is an ezcematous rash on the left arm as well. The patient has difficulty bending at the wrist as well. The patient has a penicillin allergy which leads to rashes. The cellulitis started about 3 days ago with developing pain. The patient had I&D of the left hand swelling at the thenar eminence with Dr. Callahan today. Objective - Vital Signs/Intake and Output Vital Signs (last 24 hours): Temp Pulse Resp BP Pulse Ox 98.5 F 70 18 132/95 H 98 03/04/17 08:00 03/04/17 08:00 03/04/17 08:00 03/04/17 08:00 03/04/17 08:00 Intake and Output: 03/04/17 03/04/17 06:59 18:59 Intake Total 120 600 Balance 120 600 - Medications Medications: Current Medications Albuterol/Ipratropium (Duoneb 3 Mg/0.5 Mg (3 Ml) Ud) 3 ml IH [id number] LY Last Admin: 03/04/17 13:56 Dose: 3 ml Albuterol/Ipratropium (Duoneb 3 Mg/0.5 Mg (3 Ml) Ud) 3 ml IH Q2H PRN PRN Reason: Shortness of Breath Diphenhydramine HCl (Benadryl) 25 mg PO Q6H PRN PRN Reason: Allergy symptoms Last Admin: 03/04/17 04:46 Dose: 25 mg Doxycycline Hyclate 100 mg/ (Sodium Chloride) 100 mls @ 100 mls/hr IVPB Q12 LY PRN Reason: Protocol Last Admin: 03/04/17 09:33 Dose: 100 mls/hr Vancomycin HCl (Vancomycin 1gm) 1 gm in 250 mls @ 167 mls/hr IVPB Q24H LY PRN Reason: Protocol Last Admin: 03/04/17 05:16 Dose: 167 mls/hr Ibuprofen (Motrin Tab) 200 mg PO Q6 PRN PRN Reason: Pain, moderate (4-7) Last Admin: 03/04/17 04:46 Dose: 200 mg Lactobacillus Acidophilus (Bacid Acidophilus) 1 cap PO BID [facility] Last Admin: 03/04/17 17:58 Dose: 1 cap Non-Formulary Medication (Gluc/Rudy-Msm#2/C/D3/Ubaldo/Born [Glucosamin-Chondroitin -Msm Tab]) 1 tab PO DAILY [facility] Last Admin: 03/04/17 09:34 Dose: Not Given Pantoprazole Sodium (Protonix Ec Tab) 40 mg PO 0600 [facility] Vitamin B Complex/Vit C/Folic Acid (Nephro-Juan) 1 tab PO DAILY [facility] Last Admin: 03/04/17 09:34 Dose: 1 tab - Labs Labs: 03/04/17 08:20 03/04/17 08:20 PT 9.5 Seconds (9.9-11.8) L 03/03/17 16:00 INR 0.88 (0.93-1.08) L 03/03/17 16:00 APTT 25.4 Seconds (23.7-30.8) 03/03/17 16:00 - Constitutional Appears: Non-toxic, No Acute Distress, Chronically Ill - Head Exam Head Exam: ATRAUMATIC, NORMOCEPHALIC - Eye Exam Eye Exam: EOMI, PERRL Pupil Exam: NORMAL ACCOMODATION, PERRL - ENT Exam ENT Exam: Mucous Membranes Moist, Normal External Ear Exam, TM's Normal Bilaterally - Neck Exam Neck Exam: Full ROM, Normal Inspection - Respiratory Exam Respiratory Exam: Clear to Ausculation Bilateral, NORMAL BREATHING PATTERN. absent: Rales, Rhonchi, Wheezes - Cardiovascular Exam Cardiovascular Exam: REGULAR RHYTHM, RRR, +S1, +S2 - GI/Abdominal Exam GI & Abdominal Exam: Soft, Normal Bowel Sounds. absent: Distended, Tenderness - Extremities Exam Additional comments: left arm with limited ROM of the left wrist and to a lesser degree the left elbow. There is swelling, erythema, warmth, and tenderness of the left forearm , wrist, and hand (especially at the thenar eminence). The patient has a prominent swelling of the thenar eminence that was I&D by surgery today. - Neurological Exam Neurological Exam: Alert, Awake, CN II-XII Intact, Oriented x3 - Psychiatric Exam Psychiatric exam: Normal Mood - Skin Additional comments: as per extremity exam. Assessment and Plan - Assessment and Plan (Free Text) Assessment: 46 yo female with cellulitis and possible abscess of thenar eminence of the left hand with tracking up the arm. The patient has a PCN allergy. The patient was started on IV Vancomycin for treatment. Local wound care. I&D of the left thenar eminence by surgery today. Thank you for allowing me to participate in the care of the patient, we will follow with you.
[2017-03-05] MEDS: Albuterol-Ipratrop 3 mg / 0.5 (3 ml) UD IH SCH ×4 (01:09→20:03)
[2017-03-05] MEDS: Vancomycin 1gm in NS 250ml 1 GM/250 ML BAG IVPB SCH (05:43)
[2017-03-05] MEDS: Pantoprazole 40 mg EC Tab PO SCH (05:43)
[2017-03-05 06:31] VITALS: O2SAT 98
--- NOTE | 2017-03-05 06:32 | CP.PCM.PN ---
<Jolly Biswas - Last Filed: 03/05/17 14:48> Subjective - Date & Time of Evaluation Date of Evaluation: 03/05/17 Time of Evaluation: 08:45 - Subjective Subjective: PGY2 Progress note for Dr. Fung Patient seen and examined at bedside. POD#1 I&D. Patient reports swelling and pain in left hand and upper extremity have improved. She is able to move her fingers and has improved grasp and flexion of all five fingers, although still limited by pain. She continues to have pruritus in her upper extremities and reports this is chronic and happens twice/year. Patient has been raising her LUE but is inconsistent with doing so. She denied fever, chills, headache, dizziness, chest pain, palpitations, SOB, cough, abdominal pain, nausea, vomiting, bowel/bladder complaints, pain/swelling in her legs bilaterally. Patient is tolerating diet. Objective - Vital Signs/Intake and Output Vital Signs (last 24 hours): Temp Pulse Resp BP Pulse Ox 98.5 F 67 19 119/78 98 03/05/17 06:00 03/05/17 06:00 03/05/17 06:00 03/05/17 06:00 03/05/17 06:00 Intake and Output: 03/04/17 03/05/17 18:59 06:59 Intake Total 600 540 Balance 600 540 - Medications Medications: Current Medications Albuterol/Ipratropium (Duoneb 3 Mg/0.5 Mg (3 Ml) Ud) 3 ml IH [id number] Last Admin: 03/05/17 01:09 Dose: Not Given Albuterol/Ipratropium (Duoneb 3 Mg/0.5 Mg (3 Ml) Ud) 3 ml IH Q2H PRN PRN Reason: Shortness of Breath Diphenhydramine HCl (Benadryl) 25 mg PO Q6H PRN PRN Reason: Allergy symptoms Last Admin: 03/04/17 04:46 Dose: 25 mg Doxycycline Hyclate 100 mg/ (Sodium Chloride) 100 mls @ 100 mls/hr IVPB Q12 LY PRN Reason: Protocol Last Admin: 03/04/17 21:53 Dose: 100 mls/hr Vancomycin HCl (Vancomycin 1gm) 1 gm in 250 mls @ 167 mls/hr IVPB Q24H LY PRN Reason: Protocol Last Admin: 03/05/17 05:43 Dose: 167 mls/hr Ibuprofen (Motrin Tab) 200 mg PO Q6 PRN PRN Reason: Pain, moderate (4-7) Last Admin: 03/04/17 04:46 Dose: 200 mg Lactobacillus Acidophilus (Bacid Acidophilus) 1 cap PO BID [facility] Last Admin: 03/04/17 17:58 Dose: 1 cap Non-Formulary Medication (Gluc/Rudy-Msm#2/C/D3/Ubaldo/Born [Glucosamin-Chondroitin -Msm Tab]) 1 tab PO DAILY [facility] Last Admin: 03/04/17 09:34 Dose: Not Given Pantoprazole Sodium (Protonix Ec Tab) 40 mg PO 0600 [facility] Last Admin: 03/05/17 05:43 Dose: 40 mg Vitamin B Complex/Vit C/Folic Acid (Nephro-Juan) 1 tab PO DAILY [facility] Last Admin: 03/04/17 09:34 Dose: 1 tab - Labs Labs: 03/04/17 08:20 03/04/17 08:20 PT 9.5 Seconds (9.9-11.8) L 03/03/17 16:00 INR 0.88 (0.93-1.08) L 03/03/17 16:00 APTT 25.4 Seconds (23.7-30.8) 03/03/17 16:00 - Additional Findings Additional findings: Constitutional: Pt appears fidgety and restless; Pleasant but dramatic affect; a &o x 4, nad Head and Neck: +Red, pruritic rash that crosses midline on her neck; neck supple , no jvd, trachea midline, carotid midline, no cervical/head mass Eyes: mireya, nonicteric sclera, eom intact ENT: auditory acuity grossly intact, throat not congested, no nasal deformity Cardio: rrr, no m/r/g, no carotid bruit, nml s1, s2 Pulm: no accessory muscle use, equal nml breath sounds bilaterally, ctab Abd: s/nt/nd, nbs x 4 q, no palpable masses Derm: +See extremity exam Extr: B/l UE red, peeling rash- improving. Left hand swelling slightly improved - dressings c/d/i. No purulent discharge, no fluctuance. Neuro: cn II-XII grossly intact, ue and le 5/5 muscle strength bilaterally, no los ue, le bilaterally and core Assessment and Plan - Assessment and Plan (Free Text) Assessment: 46 year old female PMHx asthma, arthritis presented with b/l UE rash worse on the Left Plan: Left hand cellulitis and abscess - POD#1 bedside I&D - Vancomycin 1gm ivpb q24 Day 2 - Doxycycline 100mg ivpb q12 Day 3 - Motrin 200mg po q6 prn pain - Benadryl 25mg po q6 prn pruritus - Florastor 1 cap po bid - Left Hand x-ray 03/03: no acute fracture/dislocation - Wound culture: prelim Gram positive cocci - Blood culture prelim negative x 2 - Surgery Dr. Callahan consulted - ID Dr. Overton consulted Hx of Eczema - started patient on topical hydrocortisone 2.5% BID - Monitor Hx of Asthma - Duoneb 3ml inh q6 LY - Duoneb 3ml inh q2 prn Hx of Arthritis - Glucosamine 1 tab po daily - VICTOR HUGO, RF ordered in light of her photosensitive rash and hx/o arthritis Hx of Hep C - Hep C Ab + - LFT's elevated - trend - f/u Abdominal u/s - UDS negative GI ppx: Protonix 40mg po daily DVT ppx: SCDs; Heparin 5000u sc q12 Diet: Regular diet Discussed with Dr. Kenton Biswas PGY2 <Laura Fung - Last Filed: 03/05/17 15:10> Objective - Vital Signs/Intake and Output Vital Signs (last 24 hours): Temp Pulse Resp BP Pulse Ox 98.5 F 67 19 119/78 98 03/05/17 08:22 03/05/17 08:22 03/05/17 08:22 03/05/17 08:22 03/05/17 08:22 Intake and Output: 03/05/17 03/05/17 06:59 18:59 Intake Total 540 240 Balance 540 240 - Medications Medications: Current Medications Albuterol/Ipratropium (Duoneb 3 Mg/0.5 Mg (3 Ml) Ud) 3 ml IH [id number] [facility] Last Admin: 03/05/17 13:54 Dose: Not Given Albuterol/Ipratropium (Duoneb 3 Mg/0.5 Mg (3 Ml) Ud) 3 ml IH Q2H PRN PRN Reason: Shortness of Breath Diphenhydramine HCl (Benadryl) 25 mg PO Q6H PRN PRN Reason: Allergy symptoms Last Admin: 03/04/17 04:46 Dose: 25 mg Heparin Sodium (Porcine) (Heparin) 5,000 units SC Q12 LY PRN Reason: Protocol Hydrocortisone (Hydrocortisone 2.5%) 0 gm TOP BID LY Doxycycline Hyclate 100 mg/ (Sodium Chloride) 100 mls @ 100 mls/hr IVPB Q12 LY PRN Reason: Protocol Last Admin: 03/05/17 10:30 Dose: 100 mls/hr Vancomycin HCl (Vancomycin 1gm) 1 gm in 250 mls @ 167 mls/hr IVPB Q24H LY PRN Reason: Protocol Last Admin: 03/05/17 05:43 Dose: 167 mls/hr Ibuprofen (Motrin Tab) 200 mg PO Q6 PRN PRN Reason: Pain, moderate (4-7) Last Admin: 03/04/17 04:46 Dose: 200 mg Lactobacillus Acidophilus (Bacid Acidophilus) 1 cap PO BID [facility] Last Admin: 03/05/17 10:30 Dose: 1 cap Non-Formulary Medication (Gluc/Rudy-Msm#2/C/D3/Ubaldo/Born [Glucosamin-Chondroitin -Msm Tab]) 1 tab PO DAILY [facility] Last Admin: 03/04/17 09:34 Dose: Not Given Pantoprazole Sodium (Protonix Ec Tab) 40 mg PO 0600 [facility] Last Admin: 03/05/17 05:43 Dose: 40 mg Vitamin B Complex/Vit C/Folic Acid (Nephro-Juan) 1 tab PO DAILY [facility] Last Admin: 03/05/17 10:30 Dose: 1 tab - Labs Labs: 03/05/17 08:30 03/05/17 08:30 PT 9.5 Seconds (9.9-11.8) L 03/03/17 16:00 INR 0.88 (0.93-1.08) L 03/03/17 16:00 APTT 25.4 Seconds (23.7-30.8) 03/03/17 16:00 Attending/Attestation - Attestation I have personally seen and examined this patient.: Yes I have fully participated in the care of the patient.: Yes I have reviewed all pertinent clinical information, including history, physical exam and plan: Yes Notes (Text): 03/05/17 15:07 46 year old female with past medical history of arthritis and asthma who presents with bilateral upper extremity rash and left hand cellulitis/abscess. She is s/p bedside I&D. Continue with iv antibiotics as per ID. Surgery is following as well. Will follow up on cultures. Patient has history of hepatitis C. Continue to monitor LFTs closely. Abdominal ultrasound is pending. She was advised to follow up with pmd and [facility] hepatitis clinic as outpatient. Continue with robyn prn for history of asthma. Laura Fung MD Hospitalist.
[2017-03-05 08:05] LABS: MAGNESIUM 1.9 mg/dL (1.7-2.2); PHOSPHOROUS 3.9 mg/dL (2.5-4.5)
[2017-03-05 09:40] LABS: BASO # 0.02 K/mm3 (0.0-2.0); BASO % 0.2 % (0.0-3.0); EOS # 0.1 (0.0-0.7); EOS % 1.6 % (1.5-5.0); GRAN # 4.5 (1.4-6.5); GRAN % 56.3 % (50.0-68.0); HEMATOCRIT 36.9 % (36.0-48.0); LYMPH # 2.8 (1.2-3.4); LYMPH % 34.8 % (22.0-35.0); MEAN CELL VOLUME 91.1 fl (80.0-105.0); MEAN CORPUSCULAR HEMOGLOBIN 29.9 pg (25.0-35.0); MEAN CORPUSCULAR HGB CONC 32.8 g/dl (31.0-37.0); MEAN PLATELET VOLUME 10.1 fl (7.0-11.0); MONO # 0.6 (0.1-0.6); MONO % 7.1 % (1.0-6.0)
[2017-03-05] MEDS: Multivitamin Vitamin B Complex (Nephro-Vite) Tab PO SCH (10:30)
[2017-03-05] MEDS: Lactobacillus Acidophilus 500 MU Cap PO SCH ×2 (10:30→18:46)
--- NOTE | 2017-03-05 11:59 | CP.PCM.PN ---
Subjective - Date & Time of Evaluation Date of Evaluation: 03/05/17 Time of Evaluation: 11:49 - Subjective Subjective: Surgery: Dr. Callahan Patient complains of pain to left thumb s/p I&D. She reports swelling of the dorsum of her hand. She is inconsistent with keeping it elevated. Objective - Vital Signs/Intake and Output Vital Signs (last 24 hours): Temp Pulse Resp BP Pulse Ox 98.5 F 67 19 119/78 98 03/05/17 08:22 03/05/17 08:22 03/05/17 08:22 03/05/17 08:22 03/05/17 08:22 Intake and Output: 03/05/17 03/05/17 06:59 18:59 Intake Total 540 Balance 540 - Medications Medications: Current Medications Albuterol/Ipratropium (Duoneb 3 Mg/0.5 Mg (3 Ml) Ud) 3 ml IH [id number] [facility] Last Admin: 03/05/17 08:09 Dose: 3 ml Albuterol/Ipratropium (Duoneb 3 Mg/0.5 Mg (3 Ml) Ud) 3 ml IH Q2H PRN PRN Reason: Shortness of Breath Diphenhydramine HCl (Benadryl) 25 mg PO Q6H PRN PRN Reason: Allergy symptoms Last Admin: 03/04/17 04:46 Dose: 25 mg Doxycycline Hyclate 100 mg/ (Sodium Chloride) 100 mls @ 100 mls/hr IVPB Q12 LY PRN Reason: Protocol Last Admin: 03/05/17 10:30 Dose: 100 mls/hr Vancomycin HCl (Vancomycin 1gm) 1 gm in 250 mls @ 167 mls/hr IVPB Q24H LY PRN Reason: Protocol Last Admin: 03/05/17 05:43 Dose: 167 mls/hr Ibuprofen (Motrin Tab) 200 mg PO Q6 PRN PRN Reason: Pain, moderate (4-7) Last Admin: 03/04/17 04:46 Dose: 200 mg Lactobacillus Acidophilus (Bacid Acidophilus) 1 cap PO BID [facility] Last Admin: 03/05/17 10:30 Dose: 1 cap Non-Formulary Medication (Gluc/Rudy-Msm#2/C/D3/Ubaldo/Born [Glucosamin-Chondroitin -Msm Tab]) 1 tab PO DAILY [facility] Last Admin: 03/04/17 09:34 Dose: Not Given Pantoprazole Sodium (Protonix Ec Tab) 40 mg PO 0600 [facility] Last Admin: 03/05/17 05:43 Dose: 40 mg Vitamin B Complex/Vit C/Folic Acid (Nephro-Juan) 1 tab PO DAILY [facility] Last Admin: 03/05/17 10:30 Dose: 1 tab - Labs Labs: 03/05/17 08:30 03/04/17 08:20 PT 9.5 Seconds (9.9-11.8) L 03/03/17 16:00 INR 0.88 (0.93-1.08) L 03/03/17 16:00 APTT 25.4 Seconds (23.7-30.8) 03/03/17 16:00 - Constitutional Appears: Non-toxic, No Acute Distress - Head Exam Head Exam: ATRAUMATIC, NORMOCEPHALIC - Eye Exam Eye Exam: EOMI, Normal appearance - ENT Exam ENT Exam: Mucous Membranes Moist - Respiratory Exam Respiratory Exam: NORMAL BREATHING PATTERN. absent: Respiratory Distress - Cardiovascular Exam Cardiovascular Exam: REGULAR RHYTHM. absent: Tachycardia - Extremities Exam Additional comments: left proximal thumb w/ small opening over erythematous area, dorsum of hand with edema nontender. Dry flaky patchy rash on forearm and right arm. Assessment and Plan - Assessment and Plan (Free Text) Assessment: 46 y/o female w/ abscess of left proximal thumb s/p I&D Plan: -cont warm compress to area -keep hand elevated above the level of the heart -can montez wrap prn -cont abx -f/u final culture -d/w Dr. Callahan [facility] PGY3
[2017-03-05 12:27] LABS: ALB/GLOB RATIO 1.1 (1.1-1.8); ALKALINE PHOSPHATASE 100 U/L (38-133); ALT/SGPT 51 U/L (7-56); AST/SGOT 62 U/L (15-39); BILIRUBIN,TOTAL 0.3 mg/dL (0.2-1.3); BLOOD UREA NITROGEN 11 mg/dL (7-21); CARBON DIOXIDE 24 mmol/L (21-33); CHLORIDE 105 mmol/L (98-107); GFR AFRICAN-AMERICAN > 60; GLUCOSE,RANDOM 83 mg/dL (70-110); POTASSIUM 4.1 mmol/L (3.6-5.0); SODIUM 139 mmol/L (132-148); TOTAL PROTEIN 7.2 g/dL (5.8-8.3)
--- NOTE | 2017-03-05 12:49 | PN ---
DATE: SUBJECTIVE: The patient had swelling in the arm that is resolved, status post I and D done yesterday. This is done in my direction. The note is reviewed, I agree. The Gram stain from wrist shows a Gram-positive cocci, moderate growth and my feeling would be MRSA. We will follow with you. Tristan Callahan MD
--- NOTE | 2017-03-05 18:31 | US ---
HISTORY: Hep C positive, LFT's elevated COMPARISON: None. TECHNIQUE: Sonographic evaluation of the abdomen. FINDINGS: LIVER: Measures 14.4 cm. Increased echogenicity of the liver parenchyma which could be secondary to fatty infiltration however other infiltrative hepatocellular disease process not excluded. . No mass. No intrahepatic bile duct dilatation. Portal vein demonstrates hepatopetal flow GALLBLADDER: Unremarkable. No gallstones. No sonographic Ponce sign COMMON BILE DUCT: Measures 5.1 mm. No stones. No dilatation. PANCREAS: Unremarkable as visualized. No mass. No ductal dilatation. RIGHT KIDNEY: Measures 12.5 x mic5.3 x 5.1cm. Normal echogenicity. No calculus, mass, or hydronephrosis. LEFT KIDNEY: Measures 13.7 x 4.6 x 5.4cm. Normal echogenicity. No calculus, mass, or hydronephrosis. SPLEEN: Normal in size and contour. No mass. AORTA: No aneurysmal dilatation. IVC: Unremarkable. OTHER FINDINGS: None. IMPRESSION: Increased hepatic echotexture which could be secondary to fatty infiltration ; other infiltrative hepatocellular disease process not excluded.
--- NOTE | 2017-03-05 18:32 | CP.PCM.PN ---
Subjective - Date & Time of Evaluation Date of Evaluation: 03/05/17 Time of Evaluation: 17:15 - Subjective Subjective: Infectious Disease Follow Up: March 05, 2017 46 yo female with swelling, erythema, and pain to the left hand, wrist, and forearm. There is an ezcematous rash on the left arm as well. The patient has difficulty bending at the wrist as well. The patient has a penicillin allergy which leads to rashes. The cellulitis started about 3 days ago with developing pain. The patient had I&D of the left hand swelling at the thenar eminence with Dr. Callahan during this hospitalization. The patient is still complaining of pain in the left hand. Objective - Vital Signs/Intake and Output Vital Signs (last 24 hours): Temp Pulse Resp BP Pulse Ox 98.5 F 67 19 119/78 98 03/05/17 08:22 03/05/17 08:22 03/05/17 08:22 03/05/17 08:22 03/05/17 08:22 Intake and Output: 03/05/17 03/05/17 06:59 18:59 Intake Total 540 240 Balance 540 240 - Medications Medications: Current Medications Albuterol/Ipratropium (Duoneb 3 Mg/0.5 Mg (3 Ml) Ud) 3 ml IH [id number] [id number] Last Admin: 03/05/17 13:54 Dose: Not Given Albuterol/Ipratropium (Duoneb 3 Mg/0.5 Mg (3 Ml) Ud) 3 ml IH Q2H PRN PRN Reason: Shortness of Breath Diphenhydramine HCl (Benadryl) 25 mg PO Q6H PRN PRN Reason: Allergy symptoms Last Admin: 03/04/17 04:46 Dose: 25 mg Heparin Sodium (Porcine) (Heparin) 5,000 units SC Q12 LY PRN Reason: Protocol Hydrocortisone (Hydrocortisone 2.5%) 0 gm TOP BID LY Doxycycline Hyclate 100 mg/ (Sodium Chloride) 100 mls @ 100 mls/hr IVPB Q12 LY PRN Reason: Protocol Last Admin: 03/05/17 10:30 Dose: 100 mls/hr Vancomycin HCl (Vancomycin 1gm) 1 gm in 250 mls @ 167 mls/hr IVPB Q24H LY PRN Reason: Protocol Last Admin: 03/05/17 05:43 Dose: 167 mls/hr Ibuprofen (Motrin Tab) 200 mg PO Q6 PRN PRN Reason: Pain, moderate (4-7) Last Admin: 03/04/17 04:46 Dose: 200 mg Lactobacillus Acidophilus (Bacid Acidophilus) 1 cap PO BID [facility] Last Admin: 03/05/17 10:30 Dose: 1 cap Non-Formulary Medication (Gluc/Rudy-Msm#2/C/D3/Ubaldo/Born [Glucosamin-Chondroitin -Msm Tab]) 1 tab PO DAILY [facility] Last Admin: 03/04/17 09:34 Dose: Not Given Pantoprazole Sodium (Protonix Ec Tab) 40 mg PO 0600 [facility] Last Admin: 03/05/17 05:43 Dose: 40 mg Vitamin B Complex/Vit C/Folic Acid (Nephro-Juan) 1 tab PO DAILY [facility] Last Admin: 03/05/17 10:30 Dose: 1 tab - Labs Labs: 03/05/17 08:30 03/05/17 08:30 PT 9.5 Seconds (9.9-11.8) L 03/03/17 16:00 INR 0.88 (0.93-1.08) L 03/03/17 16:00 APTT 25.4 Seconds (23.7-30.8) 03/03/17 16:00 - Constitutional Appears: Non-toxic, No Acute Distress, Chronically Ill - Head Exam Head Exam: ATRAUMATIC, NORMOCEPHALIC - Eye Exam Eye Exam: EOMI, PERRL Pupil Exam: NORMAL ACCOMODATION, PERRL - ENT Exam ENT Exam: Mucous Membranes Moist, Normal External Ear Exam, TM's Normal Bilaterally - Neck Exam Neck Exam: Full ROM, Normal Inspection - Respiratory Exam Respiratory Exam: Clear to Ausculation Bilateral, NORMAL BREATHING PATTERN. absent: Rales, Rhonchi, Wheezes - Cardiovascular Exam Cardiovascular Exam: REGULAR RHYTHM, RRR, +S1, +S2 - GI/Abdominal Exam GI & Abdominal Exam: Soft, Normal Bowel Sounds. absent: Distended, Tenderness - Extremities Exam Additional comments: left arm with limited ROM of the left wrist and to a lesser degree the left elbow. There is swelling, erythema, warmth, and tenderness of the left forearm , wrist, and hand (especially at the thenar eminence). The patient has a prominent swelling of the thenar eminence that was I&D by surgery today. - Neurological Exam Neurological Exam: Alert, Awake, CN II-XII Intact, Oriented x3 - Psychiatric Exam Psychiatric exam: Normal Affect, Normal Mood - Skin Additional comments: as per extremity exam. Assessment and Plan - Assessment and Plan (Free Text) Assessment: 46 yo female with cellulitis and possible abscess of thenar eminence of the left hand with tracking up the arm. The patient has a PCN allergy. The patient was started on IV Vancomycin for treatment. Local wound care. I&D of the left thenar eminence by surgery during this hospitalization. She is still complaining of pain in the left thenar eminence/thumb Thank you for allowing me to participate in the care of the patient, we will follow with you.
[2017-03-05] MEDS: Hydrocortisone 2.5% Oint(30 gm) TOP SCH (18:46)
[2017-03-05] MEDS ORDERED: DiphenhydrAMINE 50 mg/ml Inj IVP STA (22:27)
[2017-03-06] MEDS: Albuterol-Ipratrop 3 mg / 0.5 (3 ml) UD IH SCH ×3 (02:47→13:17)
[2017-03-06] MEDS: Pantoprazole 40 mg EC Tab PO SCH (05:49)
[2017-03-06] MEDS: Vancomycin 1gm in NS 250ml 1 GM/250 ML BAG IVPB SCH (05:50)
[2017-03-06 06:59] LABS: BASO # 0.02 K/mm3 (0.0-2.0); BASO % 0.3 % (0.0-3.0); EOS # 0.1 (0.0-0.7); EOS % 1.7 % (1.5-5.0); GRAN # 3.73 (1.4-6.5); HEMATOCRIT 39.3 % (36.0-48.0); LYMPH # 3.1 (1.2-3.4); MEAN CELL VOLUME 89.7 fl (80.0-105.0); MEAN CORPUSCULAR HEMOGLOBIN 29.9 pg (25.0-35.0); MEAN CORPUSCULAR HGB CONC 33.3 g/dl (31.0-37.0); MEAN PLATELET VOLUME 9.4 fl (7.0-11.0); MONO # 0.5 (0.1-0.6); WHITE BLOOD COUNT 7.5 10^3/ul (4.5-11.0)
[2017-03-06 07:07] LABS: ALB/GLOB RATIO 1.1 (1.1-1.8); ALKALINE PHOSPHATASE 114 U/L (38-133); ALT/SGPT 51 U/L (7-56); AST/SGOT 46 U/L (15-39); BILIRUBIN,TOTAL 0.5 mg/dL (0.2-1.3); BLOOD UREA NITROGEN 12 mg/dL (7-21); CALCIUM 9.2 mg/dL (8.4-10.5); CARBON DIOXIDE 27 mmol/L (21-33); CHLORIDE 102 mmol/L (98-107); GFR AFRICAN-AMERICAN > 60; GLUCOSE,RANDOM 82 mg/dL (70-110); PHOSPHOROUS 4.8 mg/dL (2.5-4.5); POTASSIUM 4.2 mmol/L (3.6-5.0); SODIUM 141 mmol/L (132-148); TOTAL PROTEIN 8.1 g/dL (5.8-8.3)
--- NOTE | 2017-03-06 07:27 | CP.PCM.PN ---
Subjective - Date & Time of Evaluation Date of Evaluation: 03/06/17 Time of Evaluation: 07:26 - Subjective Subjective: General Surgery for Dr. Callahan PT S&E SON. Patient states she's tolerating pain well. Dressing's changed at bedside. Patient denies F/C, N/V, abdominal pain, diarrhea, constipation. Objective - Vital Signs/Intake and Output Vital Signs (last 24 hours): Temp Pulse Resp BP Pulse Ox 98.5 F 67 19 119/78 98 03/05/17 08:22 03/05/17 08:22 03/05/17 08:22 03/05/17 08:22 03/05/17 08:22 Intake and Output: 03/06/17 03/06/17 06:59 18:59 Intake Total 120 Balance 120 - Medications Medications: Current Medications Albuterol/Ipratropium (Duoneb 3 Mg/0.5 Mg (3 Ml) Ud) 3 ml IH [id number] Last Admin: 03/06/17 02:47 Dose: Not Given Albuterol/Ipratropium (Duoneb 3 Mg/0.5 Mg (3 Ml) Ud) 3 ml IH Q2H PRN PRN Reason: Shortness of Breath Diphenhydramine HCl (Benadryl) 25 mg PO Q6H PRN PRN Reason: Allergy symptoms Last Admin: 03/04/17 04:46 Dose: 25 mg Heparin Sodium (Porcine) (Heparin) 5,000 units SC Q12 LY PRN Reason: Protocol Last Admin: 03/05/17 21:36 Dose: 5,000 units Hydrocortisone (Hydrocortisone 2.5%) 0 gm TOP BID LY Last Admin: 03/05/17 18:46 Dose: 1 oin Doxycycline Hyclate 100 mg/ (Sodium Chloride) 100 mls @ 100 mls/hr IVPB Q12 LY PRN Reason: Protocol Last Admin: 03/05/17 21:52 Dose: 100 mls/hr Vancomycin HCl (Vancomycin 1gm) 1 gm in 250 mls @ 167 mls/hr IVPB Q24H LY PRN Reason: Protocol Last Admin: 03/06/17 05:50 Dose: Not Given Ibuprofen (Motrin Tab) 200 mg PO Q6 PRN PRN Reason: Pain, moderate (4-7) Last Admin: 03/04/17 04:46 Dose: 200 mg Lactobacillus Acidophilus (Bacid Acidophilus) 1 cap PO BID [facility] Last Admin: 03/05/17 18:46 Dose: 1 cap Non-Formulary Medication (Gluc/Rudy-Msm#2/C/D3/Ubaldo/Born [Glucosamin-Chondroitin -Msm Tab]) 1 tab PO DAILY [facility] Last Admin: 03/04/17 09:34 Dose: Not Given Pantoprazole Sodium (Protonix Ec Tab) 40 mg PO 0600 [facility] Last Admin: 03/06/17 05:49 Dose: 40 mg Vitamin B Complex/Vit C/Folic Acid (Nephro-Juan) 1 tab PO DAILY [facility] Last Admin: 03/05/17 10:30 Dose: 1 tab - Labs Labs: 03/06/17 06:00 03/06/17 06:00 PT 9.5 Seconds (9.9-11.8) L 03/03/17 16:00 INR 0.88 (0.93-1.08) L 03/03/17 16:00 APTT 25.4 Seconds (23.7-30.8) 03/03/17 16:00 - Constitutional Appears: Non-toxic, No Acute Distress - Head Exam Head Exam: NORMAL INSPECTION - Eye Exam Eye Exam: EOMI, Normal appearance - ENT Exam ENT Exam: Mucous Membranes Moist - Respiratory Exam Respiratory Exam: Clear to Ausculation Bilateral, NORMAL BREATHING PATTERN - Cardiovascular Exam Cardiovascular Exam: REGULAR RHYTHM. absent: Bradycardia, Tachycardia - GI/Abdominal Exam GI & Abdominal Exam: Soft, Normal Bowel Sounds. absent: Tenderness - Extremities Exam Extremities Exam: Full ROM, Normal Inspection. absent: Joint Swelling, Pedal Edema - Neurological Exam Neurological Exam: Alert, Awake, Normal Gait - Psychiatric Exam Psychiatric exam: Normal Affect, Normal Mood - Skin Skin Exam: Dry, Rash. absent: Intact Additional comments: I&D site with no packing. decreased swelling and erythema. skin on arms bilaterally have areas of dry patches and scratch quinones. Assessment and Plan - Assessment and Plan (Free Text) Assessment: 46F Presents with left forearm abscess secondary to cellulitis. s/p Incision and drainage POD #2 Plan: Patient is hemodynamically stable. continue with current medical management. No surgical intervention needed at this time.
[2017-03-06] MEDS: Lactobacillus Acidophilus 500 MU Cap PO SCH (10:14)
[2017-03-06] MEDS: Hydrocortisone 2.5% Oint(30 gm) TOP SCH (10:14)
[2017-03-06] MEDS: Multivitamin Vitamin B Complex (Nephro-Vite) Tab PO SCH (10:14)
[2017-03-06] MEDS ORDERED: Tmp-Smz 800 mg-160 mg DS Tab PO SCH (11:45)
[2017-03-06 15:50] VITALS: BP 100/54; PULSE 64; RESP 18; TEMP 98.2
--- NOTE | 2017-03-06 16:51 | CP.PCM.PN ---
Subjective - Date & Time of Evaluation Date of Evaluation: 03/06/17 Time of Evaluation: 14:00 - Subjective Subjective: Infectious Disease Follow Up: March 06, 2017 46 yo female with swelling, erythema, and pain to the left hand, wrist, and forearm. There is an ezcematous rash on the left arm as well. The patient has difficulty bending at the wrist as well. The patient has a penicillin allergy which leads to rashes. The cellulitis started about 3 days ago with developing pain. The patient had I&D of the left hand swelling at the thenar eminence with Dr. Callahan during this hospitalization. The patient is still complaining of pain in the left hand. She complained of burning of the left hand and arm when antibiotic infusing in... especially the Doxycycline. Switched to oral Bactrim this afternoon. Objective - Vital Signs/Intake and Output Vital Signs (last 24 hours): Temp Pulse Resp BP Pulse Ox 98.2 F 64 18 100/54 L 98 03/06/17 15:49 03/06/17 15:49 03/06/17 15:49 03/06/17 15:49 03/06/17 15:49 Intake and Output: 03/06/17 03/06/17 06:59 18:59 Intake Total 120 800 Balance 120 800 - Labs Labs: 03/06/17 06:00 03/06/17 06:00 PT 9.5 Seconds (9.9-11.8) L 03/03/17 16:00 INR 0.88 (0.93-1.08) L 03/03/17 16:00 APTT 25.4 Seconds (23.7-30.8) 03/03/17 16:00 - Constitutional Appears: Non-toxic, No Acute Distress, Chronically Ill - Head Exam Head Exam: ATRAUMATIC, NORMOCEPHALIC - Eye Exam Eye Exam: EOMI, PERRL Pupil Exam: NORMAL ACCOMODATION, PERRL - ENT Exam ENT Exam: Mucous Membranes Moist, Normal External Ear Exam, TM's Normal Bilaterally - Neck Exam Neck Exam: Full ROM, Normal Inspection - Respiratory Exam Respiratory Exam: Clear to Ausculation Bilateral, Rales, NORMAL BREATHING PATTERN. absent: Rhonchi, Wheezes - Cardiovascular Exam Cardiovascular Exam: REGULAR RHYTHM, RRR, +S1, +S2 - GI/Abdominal Exam GI & Abdominal Exam: Soft, Normal Bowel Sounds. absent: Distended, Tenderness - Extremities Exam Additional comments: left arm with limited ROM of the left wrist and to a lesser degree the left elbow. There is swelling, erythema, warmth, and tenderness of the left forearm , wrist, and hand (especially at the thenar eminence). The patient has a prominent swelling of the thenar eminence that was I&D by surgery. Since surgery and antibiotics, the swelling and erythema are nearly resolved. - Neurological Exam Neurological Exam: Alert, Awake, CN II-XII Intact, Oriented x3 - Psychiatric Exam Psychiatric exam: Normal Affect, Normal Mood - Skin Skin Exam: Intact, Normal Color Assessment and Plan - Assessment and Plan (Free Text) Assessment: 46 yo female with cellulitis and possible abscess of thenar eminence of the left hand with tracking up the arm. The patient has a PCN allergy. The patient was started on IV Vancomycin for treatment. Local wound care. I&D of the left thenar eminence by surgery during this hospitalization. She is still complaining of pain in the left thenar eminence/thumb. Switch to oral Bactrim made to today. Consider 14 days of Bactrim DS 1 tab PO BID to complete treatment. Thank you for allowing me to participate in the care of the patient, we will follow with you.
--- NOTE | 2017-03-06 17:52 | CP.PCM.DIS ---
<Aditi Camacho - Last Filed: 03/06/17 17:57> Provider - Provider Date of Admission: 03/03/17 17:40 Attending physician: Laura Fung MD Primary care physician: Nick Elliott MD Consults: ID - Dr. Overton Surgery - Dr. Callahan Time Spent in preparation of Discharge (in minutes): 40 Hospital Course - Lab Results Lab Results: Micro Results 03/04/17 13:05 Hand - Left Gram Stain - Final 03/04/17 13:05 Hand - Left Wound Culture - Final Methicillin Resistant S Aureus Most Recent Lab Values WBC 7.5 10^3/ul (4.5-11.0) 03/06/17 06:00 RBC 4.38 10^6/uL (3.5-6.1) 03/06/17 06:00 Hgb 13.1 g/dL (12.0-16.0) 03/06/17 06:00 Hct 39.3 % (36.0-48.0) 03/06/17 06:00 MCV 89.7 fl (80.0-105.0) 03/06/17 06:00 MCH 29.9 pg (25.0-35.0) 03/06/17 06:00 MCHC 33.3 g/dl (31.0-37.0) 03/06/17 06:00 RDW 12.0 % (11.5-14.5) 03/06/17 06:00 Plt Count 297 10^3/uL (120.0-450.0) 03/06/17 06:00 MPV 9.4 fl (7.0-11.0) 03/06/17 06:00 Gran % 50.0 % (50.0-68.0) 03/06/17 06:00 Lymph % (Auto) 42.0 % (22.0-35.0) H 03/06/17 06:00 Burt % (Auto) 6.0 % (1.0-6.0) 03/06/17 06:00 Eos % (Auto) 1.7 % (1.5-5.0) 03/06/17 06:00 Baso % (Auto) 0.3 % (0.0-3.0) 03/06/17 06:00 Gran # 3.73 (1.4-6.5) 03/06/17 06:00 Lymph # 3.1 (1.2-3.4) 03/06/17 06:00 Burt # 0.5 (0.1-0.6) 03/06/17 06:00 Eos # 0.1 (0.0-0.7) 03/06/17 06:00 Baso # 0.02 K/mm3 (0.0-2.0) 03/06/17 06:00 PT 9.5 Seconds (9.9-11.8) L 03/03/17 16:00 INR 0.88 (0.93-1.08) L 03/03/17 16:00 APTT 25.4 Seconds (23.7-30.8) 03/03/17 16:00 pO2 22 mm/Hg (30-55) L 03/03/17 16:00 VBG pH 7.28 (7.32-7.43) L 03/03/17 16:00 VBG pCO2 70.0 (40-60) H* 03/03/17 16:00 VBG HCO3 34.3 mmol/l (21-28) H 03/03/17 16:00 VBG Total CO2 36.5 mmol.L (22-28) H 03/03/17 16:00 VBG O2 Sat (Calc) 42.1 % (40-65) 03/03/17 16:00 VBG Base Excess 4.8 mmol/L (0.0-2.0) H 03/03/17 16:00 VBG Potassium 3.9 mmol/L (3.6-5.2) 03/03/17 16:00 Sodium 142.0 mmol/L (132-148) 03/03/17 16:00 Chloride 105.0 mmol/L (98-107) 03/03/17 16:00 Glucose 79 mg/dl (65-105) 03/03/17 16:00 Lactate 1.0 mmol/L (0.7-2.1) 03/03/17 16:00 FiO2 21.0 % 03/03/17 16:00 Sodium 141 mmol/L (132-148) 03/06/17 06:00 Potassium 4.2 mmol/L (3.6-5.0) 03/06/17 06:00 Chloride 102 mmol/L (98-107) 03/06/17 06:00 Carbon Dioxide 27 mmol/L (21-33) 03/06/17 06:00 Anion Gap 16 (10-20) 03/06/17 06:00 BUN 12 mg/dL (7-21) 03/06/17 06:00 Creatinine 0.7 mg/dL (0.5-1.4) 03/06/17 06:00 Est GFR ( Amer) > 60 03/06/17 06:00 Est GFR (Non-Af Amer) > 60 03/06/17 06:00 Random Glucose 82 mg/dL (70-110) 03/06/17 06:00 Calcium 9.2 mg/dL (8.4-10.5) 03/06/17 06:00 Phosphorus 4.8 mg/dL (2.5-4.5) H 03/06/17 06:00 Magnesium 2.0 mg/dL (1.7-2.2) 03/06/17 06:00 Total Bilirubin 0.5 mg/dL (0.2-1.3) 03/06/17 06:00 AST 46 U/L (15-39) H 03/06/17 06:00 ALT 51 U/L (7-56) 03/06/17 06:00 Alkaline Phosphatase 114 U/L (38-133) 03/06/17 06:00 Total Protein 8.1 g/dL (5.8-8.3) 03/06/17 06:00 Albumin 4.2 g/dL (3.0-4.8) 03/06/17 06:00 Globulin 3.9 gm/dL 03/06/17 06:00 Albumin/Globulin Ratio 1.1 (1.1-1.8) 03/06/17 06:00 Venous Blood Potassium 3.9 mmol/L (3.6-5.2) 03/03/17 16:00 Urine Opiates Screen Positive (NEGATIVE) H 03/04/17 20:50 Urine Methadone Screen Negative (NEGATIVE) 03/04/17 20:50 Ur Barbiturates Screen Negative (NEGATIVE) 03/04/17 20:50 Ur Phencyclidine Scrn Negative (NEGATIVE) 03/04/17 20:50 Ur Amphetamines Screen Negative (NEGATIVE) 03/04/17 20:50 U Benzodiazepines Scrn Negative (NEGATIVE) 03/04/17 20:50 U Oth Cocaine Metabols Negative (NEGATIVE) 03/04/17 20:50 U Cannabinoids Screen Negative (NEGATIVE) 03/04/17 20:50 Alcohol, Quantitative < 10 mg/dL (0-10) 03/03/17 16:00 Hepatitis A IgM Ab Negative (NEGATIVE) 03/03/17 16:00 Hep Bs Antigen Negative (NEGATIVE) 03/03/17 16:00 Hep B Core IgM Ab Negative (NEGATIVE) 03/03/17 16:00 Hepatitis C Antibody Reactive (NEGATIVE) 03/03/17 16:00 - Hospital Course Hospital Course: This patient is a 46 year old female with PHMx of eczema, arthritis, and hep C who presented complaining b/l distal UE rash which was more severe on the left. Patient stated on admission that she gets the same rash every summer. Patient was diagnosed with left hand cellulitis and abscess. Abscess was incised and drained. Blood cultures (-)x 3 days. Wound culture came back positive for MRSA. Patient was then treated with Doxy and Vanc. Patient had improvement of symptoms. Swelling and pain reduced. Patient is now able to make fist with hand. We will send home on Bactrim 1 Tab PO BID for 14 days. Patient is to follow up with Primary Physician within 1 week. Patient is agreeable with plan and medications. Abd US (Due to elevated LFT's) - increased hepatic echotexture 2/2 possible fatty infiltrate. Hepatocellular disease cannot be excluded Hand X-ray - No acute fracture or dislocation. Patient seen and examined with attending. Aditi Camacho PGY-1 - Date & Time of H&P Date of H&P: 03/06/17 Time of H&P: 18:04 Discharge Exam - Head Exam Head Exam: NORMOCEPHALIC - Eye Exam Eye Exam: EOMI, Normal appearance - ENT Exam ENT Exam: Mucous Membranes Moist - Cardiovascular Exam Cardiovascular Exam: RRR, +S1, +S2 - GI/Abdominal Exam GI & Abdominal Exam: Normal Bowel Sounds, Soft. absent: Tenderness - Extremities Exam Additional comments: Swelling and Erythema of left hand (improved). Eczematous rash on left forearm and hand. Left hand tenderness (improved). - Neurological Exam Neurological exam: Alert, Oriented x3 - Psychiatric Exam Psychiatric exam: Normal Affect, Normal Mood Discharge Plan - Discharge Medications Prescriptions: Sulfamethoxazole/Trimethoprim [Bactrim DS 800 mg-160 mg] 1 tab PO BID #28 tab - Follow Up Plan Condition: STABLE Disposition: HOME/ ROUTINE Instructions: MRSA (Methicillin Resistant Staphylococcus Aureus) (DC), Cellulitis (DC), Abscess (GEN) Additional Instructions: Take Bactrim twice Dialy for 14 days. Follow up with your primary physician in 1 week. Referrals: Nick Elliott MD [Primary Care Provider] - <Kaitlin PEDRO,[facility] - Last Filed: 03/07/17 14:29> Provider - Provider Date of Admission: 03/03/17 17:40 Attending physician: Laura Fung MD Primary care physician: Nick Elliott MD Hospital Course - Lab Results Lab Results: Micro Results 03/04/17 13:05 Hand - Left Gram Stain - Final 03/04/17 13:05 Hand - Left Wound Culture - Final Methicillin Resistant S Aureus Most Recent Lab Values WBC 7.5 10^3/ul (4.5-11.0) 03/06/17 06:00 RBC 4.38 10^6/uL (3.5-6.1) 03/06/17 06:00 Hgb 13.1 g/dL (12.0-16.0) 03/06/17 06:00 Hct 39.3 % (36.0-48.0) 03/06/17 06:00 MCV 89.7 fl (80.0-105.0) 03/06/17 06:00 MCH 29.9 pg (25.0-35.0) 03/06/17 06:00 MCHC 33.3 g/dl (31.0-37.0) 03/06/17 06:00 RDW 12.0 % (11.5-14.5) 03/06/17 06:00 Plt Count 297 10^3/uL (120.0-450.0) 03/06/17 06:00 MPV 9.4 fl (7.0-11.0) 03/06/17 06:00 Gran % 50.0 % (50.0-68.0) 03/06/17 06:00 Lymph % (Auto) 42.0 % (22.0-35.0) H 03/06/17 06:00 Burt % (Auto) 6.0 % (1.0-6.0) 03/06/17 06:00 Eos % (Auto) 1.7 % (1.5-5.0) 03/06/17 06:00 Baso % (Auto) 0.3 % (0.0-3.0) 03/06/17 06:00 Gran # 3.73 (1.4-6.5) 03/06/17 06:00 Lymph # 3.1 (1.2-3.4) 03/06/17 06:00 Burt # 0.5 (0.1-0.6) 03/06/17 06:00 Eos # 0.1 (0.0-0.7) 03/06/17 06:00 Baso # 0.02 K/mm3 (0.0-2.0) 03/06/17 06:00 PT 9.5 Seconds (9.9-11.8) L 03/03/17 16:00 INR 0.88 (0.93-1.08) L 03/03/17 16:00 APTT 25.4 Seconds (23.7-30.8) 03/03/17 16:00 pO2 22 mm/Hg (30-55) L 03/03/17 16:00 VBG pH 7.28 (7.32-7.43) L 03/03/17 16:00 VBG pCO2 70.0 (40-60) H* 03/03/17 16:00 VBG HCO3 34.3 mmol/l (21-28) H 03/03/17 16:00 VBG Total CO2 36.5 mmol.L (22-28) H 03/03/17 16:00 VBG O2 Sat (Calc) 42.1 % (40-65) 03/03/17 16:00 VBG Base Excess 4.8 mmol/L (0.0-2.0) H 03/03/17 16:00 VBG Potassium 3.9 mmol/L (3.6-5.2) 03/03/17 16:00 Sodium 142.0 mmol/L (132-148) 03/03/17 16:00 Chloride 105.0 mmol/L (98-107) 03/03/17 16:00 Glucose 79 mg/dl (65-105) 03/03/17 16:00 Lactate 1.0 mmol/L (0.7-2.1) 03/03/17 16:00 FiO2 21.0 % 03/03/17 16:00 Sodium 141 mmol/L (132-148) 03/06/17 06:00 Potassium 4.2 mmol/L (3.6-5.0) 03/06/17 06:00 Chloride 102 mmol/L (98-107) 03/06/17 06:00 Carbon Dioxide 27 mmol/L (21-33) 03/06/17 06:00 Anion Gap 16 (10-20) 03/06/17 06:00 BUN 12 mg/dL (7-21) 03/06/17 06:00 Creatinine 0.7 mg/dL (0.5-1.4) 03/06/17 06:00 Est GFR ( Amer) > 60 03/06/17 06:00 Est GFR (Non-Af Amer) > 60 03/06/17 06:00 Random Glucose 82 mg/dL (70-110) 03/06/17 06:00 Calcium 9.2 mg/dL (8.4-10.5) 03/06/17 06:00 Phosphorus 4.8 mg/dL (2.5-4.5) H 03/06/17 06:00 Magnesium 2.0 mg/dL (1.7-2.2) 03/06/17 06:00 Total Bilirubin 0.5 mg/dL (0.2-1.3) 03/06/17 06:00 AST 46 U/L (15-39) H 03/06/17 06:00 ALT 51 U/L (7-56) 03/06/17 06:00 Alkaline Phosphatase 114 U/L (38-133) 03/06/17 06:00 Total Protein 8.1 g/dL (5.8-8.3) 03/06/17 06:00 Albumin 4.2 g/dL (3.0-4.8) 03/06/17 06:00 Globulin 3.9 gm/dL 03/06/17 06:00 Albumin/Globulin Ratio 1.1 (1.1-1.8) 03/06/17 06:00 Venous Blood Potassium 3.9 mmol/L (3.6-5.2) 03/03/17 16:00 Urine Opiates Screen Positive (NEGATIVE) H 03/04/17 20:50 Urine Methadone Screen Negative (NEGATIVE) 03/04/17 20:50 Ur Barbiturates Screen Negative (NEGATIVE) 03/04/17 20:50 Ur Phencyclidine Scrn Negative (NEGATIVE) 03/04/17 20:50 Ur Amphetamines Screen Negative (NEGATIVE) 03/04/17 20:50 U Benzodiazepines Scrn Negative (NEGATIVE) 03/04/17 20:50 U Oth Cocaine Metabols Negative (NEGATIVE) 03/04/17 20:50 U Cannabinoids Screen Negative (NEGATIVE) 03/04/17 20:50 Alcohol, Quantitative < 10 mg/dL (0-10) 03/03/17 16:00 Hepatitis A IgM Ab Negative (NEGATIVE) 03/03/17 16:00 Hep Bs Antigen Negative (NEGATIVE) 03/03/17 16:00 Hep B Core IgM Ab Negative (NEGATIVE) 03/03/17 16:00 Hepatitis C Antibody Reactive (NEGATIVE) 03/03/17 16:00 Attending/Attestation - Attestation I have personally seen and examined this patient.: Yes I have fully participated in the care of the patient.: Yes I have reviewed all pertinent clinical information, including history, physical exam and plan: Yes Notes (Text): 03/07/17 14:27 Patient was seen and examined with pediatric medical assistant. Agreed with resident assessment and plan. 46 year old female with past medical history of arthritis and asthma who presents with bilateral upper extremity rash and left hand cellulitis/abscess. She is SP bedside I&D.She is feeling better.Wound cultures are growing MRSA sensitive Bactrim.Blood cultures are negative for any growth.ID has recommended Bactrim, Patient wll be discharged home on oral Bactrim and will follow up with PCP and surgery. Management plan was discussed in detail with patient Education was provided. 03/07/17 14:29
== END 2017-03-06 16:33 | disposition home or self-care (01) | DRG 277 ==
LOC: ED 14:20 → ERH 17:40 → 3RSO 18:46
PROVIDERS: ADMIT Hospitalist; ATTEND Internal Medicine
PROC: 0H9GXZZ Drainage of Left Hand Skin, External Approach (ICD-10-PCS; principal; 2017-03-03)
DX: L02.512 Cutaneous abscess of left hand (principal); L03.114 Cellulitis of left upper limb; E53.8 Deficiency of other specified B group vitamins; B19.20 Unspecified viral hepatitis C without hepatic coma; J45.909 Unspecified asthma, uncomplicated; R21 Rash and other nonspecific skin eruption; M19.90 Unspecified osteoarthritis, unspecified site; F17.210 Nicotine dependence, cigarettes, uncomplicated; Z88.0 Allergy status to penicillin; Z98.51 Tubal ligation status

== ENCOUNTER 2018-01-08 15:03 | Emergency (ER) | payer OTHER ==
[2018-01-08 15:03] VITALS: BMI 26.5
--- NOTE | 2018-01-08 16:27 | ED PDOC ---
Arrival/HPI - General Time Seen by Provider: 01/08/18 16:26 Historian: Patient - History of Present Illness Narrative History of Present Illness (Text): 01/08/18 16:27 This 47 yo female who denies pmh, presents to this ED c/o right hand /fingers injury x 2 days. Patient stated she tripped and fell down forward. Patient avoid hitting her head by she injured her right hand, with right shoulder abrasion. Patient denies shoulder pain. Patient denies other somatic complains. Time/Duration: Other (2 days) Quality: Aching Context: Other (side walk in front of her house) Past Medical History - Provider Review Nursing Documentation Reviewed: Yes - Tetanus Immunization Tetanus Immunization: Up to Date - Cardiac Hx Cardiac Disorders: No - Pulmonary Hx Asthma: Yes - Neurological Hx Neurological Disorder: No - HEENT Hx HEENT Disorder: No - Renal Other/Comment: kidney infections - Endocrine/Metabolic Hx Endocrine Disorders: No - Hematological/Oncological Hx Blood Disorders: No - Integumentary Hx Dermatological Disorder: No - Musculoskeletal/Rheumatological Hx Musculoskeletal Disorders: Yes Hx Arthritis: Yes - Gastrointestinal Hx Gastrointestinal Disorders: No - Genitourinary/Gynecological Hx Genitourinary Disorders: No - Psychiatric Hx Psychophysiologic Disorder: No Hx Substance Use: No - Surgical History Hx Tubal Ligation: Yes Family/Social History - Physician Review Nursing Documentation Reviewed: Yes Family/Social History: Other (noncontributory) Smoking Status: Light Smoker < 10 Cigarettes Daily Hx Alcohol Use: Yes Hx Substance Use: No Allergies/Home Meds Allergies/Adverse Reactions: Allergies iodine Allergy (Severe, Verified 03/03/17 14:52) ANAPHYLAXIS Penicillins Allergy (Severe, Verified 03/03/17 14:53) RASH banana Allergy (Verified 03/03/17 14:53) NAUSEA coffee (Coffea arabica) Allergy (Verified 03/03/17 14:53) NAUSEA Home Medications: Home Meds Medication Instructions Recorded Confirmed Metoprolol Succinate 50 mg PO DAILY 07/18/15 07/18/15 Gluc/Rudy-MSM#2/C/D3/Ubaldo/Born 1 tab PO DAILY 03/03/17 03/03/17 [Wekpxfpjwn-Eefubtqjhfq-RWK Tab] Vitamin B Complex [B Complex] 1 tab PO DAILY 03/03/17 03/03/17 Review of Systems - Review of Systems Constitutional: Normal. absent: Fatigue, Weight Change, Fevers Eyes: Normal ENT: Normal Respiratory: Normal Cardiovascular: Normal Gastrointestinal: Normal Genitourinary Female: Normal Musculoskeletal: Other (see hpi) Skin: Normal Neurological: Normal Endocrine: Normal Hemo/Lymphatic: Normal Psychiatric: Normal Physical Exam Vital Signs Temp Pulse Resp BP Pulse Ox 01/08/18 16:30 98 F 88 18 128/75 99 Temperature: Afebrile Blood Pressure: Normal Pulse: Regular Respiratory Rate: Normal Appearance: Positive for: Well-Appearing, Non-Toxic, Comfortable Pain Distress: None Mental Status: Positive for: Alert and Oriented X 3 - Systems Exam Head: Present: Atraumatic, Normocephalic, Other (no yang sign. No raccoon sign) Pupils: Present: PERRL Extroacular Muscles: Present: EOMI. No: Entrapment Conjunctiva: Present: Normal Ears: Present: Normal, NORMAL TM, Other (no hemotympanum) Mouth: Present: Moist Mucous Membranes Nose (External): Present: Atraumatic. No: Abrasion, Contusion Nose (Internal): Present: Normal Inspection Neck: Present: Normal Range of Motion, Trachea Midline. No: Meningeal Signs, MIDLINE TENDERNESS, Paraspinal Tenderness, Lymphadenopathy Respiratory/Chest: Present: Clear to Auscultation, Good Air Exchange. No: Respiratory Distress, Accessory Muscle Use, Wheezes, Retracting, Rhonchi Cardiovascular: Present: Regular Rate and Rhythm, Normal S1, S2. No: Murmurs Abdomen: No: Tenderness, Distention, Peritoneal Signs Back: Present: Normal Inspection. No: CVA Tenderness Upper Extremity: Present: NORMAL PULSES, Tenderness ((+) right 3rd finger is mild swollen and tender on palpation with mild deformity. No oppen wound on affected finger. Mild swelling and tender on right 4th finger.), Swelling, Neurovascularly Intact, Capillary Refill < 2s. No: Cyanosis, Edema, Erythema, Temperature Abnormalties Lower Extremity: Present: Normal Inspection, NORMAL PULSES, Normal ROM, Neurovascularly Intact, Capillary Refill < 2 s. No: Edema Neurological: Present: GCS=15, CN II-XII Intact, Speech Normal, Motor Func Grossly Intact, Normal Sensory Function, Normal Cerebellar Funct, Gait Normal, Memory Normal Skin: Present: Warm, Dry, Normal Color. No: Rashes Psychiatric: Present: Alert, Oriented x 3, Normal Insight, Normal Concentration Medical Decision Making ED Course and Treatment: 01/08/18 20:[address] Oakley, hand specialist who recommended splint, and to f/u hand doctor within 2 weeks for surgery. He also recommended [place] [facility]. Re-evaluation Time: 20:58 Reassessment Condition: Re-examined, Improved - RAD Interpretation Narrative RAD Interpretations (Text): 01/08/18 20:58 Hand x-rays: (+) right 3rd prox. phalanx displaced Fx. Subtle right middle proc. anterior avulsion Fx. of right 4th finger Radiology Orders: 01/08/18 17:00 HAND RIGHT 3 VIEWS [RAD] Stat - Medication Orders Current Medication Orders: Discontinued Medications Ibuprofen (Motrin Tab) 600 mg PO STAT STA Stop: 01/08/18 17:02 Last Admin: 01/08/18 17:26 Dose: 600 mg MAR Pain/Vitals Document 01/08/18 17:26 [facility] (Rec: 01/08/18 17:26 [id number] Pain Reassessment Is This A Pain ReAssessment? No Lidocaine/Epinephrine (Lidocaine 1%/Epinephrine 1:226200 30 Ml) 2 ml IJ ONCE ONE Stop: 01/08/18 19:31 Last Admin: 01/08/18 20:32 Dose: 2 ml Tetanus/Reduced Diphtheria/Acell Pertussis (Boostrix Vaccine Inj) 0.5 ml IM .ONCE ONE Stop: 01/08/18 17:02 Last Admin: 01/08/18 17:26 Dose: 0.5 ml Immunization Registry Document 01/08/18 17:26 [facility] (Rec: 01/08/18 17:26 [id number] Immunization Registry Consent Date 01/08/18 - Procedure PROCEDURE NOTE (Text): 01/08/18 20:59 Finger splint Disposition/Present on Arrival - Present on Arrival Any Indicators Present on Arrival: No History of DVT/PE: No History of Uncontrolled Diabetes: No Urinary Catheter: No History of Decub. Ulcer: No History Surgical Site Infection Following: None - Disposition Have Diagnosis and Disposition been Completed?: Yes Diagnosis: Displaced fracture of phalanx of finger Disposition: HOME/ ROUTINE Disposition Time: 21:00 Patient Plan: Discharge Condition: GOOD Discharge Instructions (ExitCare): Finger Fracture (DC) Additional Instructions: You need to follow up with Hand doctor at earliest appointment. You also need to go to [facility] in 1-2 days. Hand specialist recommended surgery within 2 weeks, so the sooner you see the surgeon the better , plus you eventually need physical therapy for your hand and fingers. Return to emergency if pain worsen. Keep hand elevated, ice, and rest Prescriptions: Ibuprofen [Motrin] 600 mg PO Q8 PRN #20 tab PRN Reason: Pain, Severe (8-10) oxyCODONE/Acetaminophen [Percocet 5/325 mg Tab] 1 ea PO Q6H PRN #12 tab PRN Reason: Pain, Severe (8-10) Referrals: [facility] [Outside] - Follow up with primary [facility] [Outside] - Follow up with primary Aixa Noble MD [Staff Provider] - Follow up with primary Forms: WORK NOTE
[2018-01-08 16:54] VITALS: BP 128/75; PULSE 88; RESP 18; TEMP 98; O2SAT 99
[2018-01-08] MEDS ORDERED: TDAP Vaccine 0.5 mL Syr IM ONE (17:01)
[2018-01-08] MEDS ORDERED: Lidocaine 1%/Epinephrine 1:100000 30 ml vial IJ ONE (19:30)
--- NOTE | 2018-01-09 08:28 | RAD ---
PROCEDURE: Right Hand Radiographs. HISTORY: pain s/p trauma COMPARISON: None. FINDINGS: BONES: There is an acute comminuted displaced fracture in the proximal phalanx of the 3rd finger with 4 mm medial displacement. There is also an acute transverse nondisplaced fracture in the distal aspect of the proximal phalanx of the 4th finger. JOINTS: Normal. No osteoarthritic changes. SOFT TISSUES: There is diffuse soft tissue swelling in the 3rd and 4th fingers. No radiopaque foreign body. OTHER FINDINGS: None. IMPRESSION: Acute comminuted displaced fracture in the proximal phalanx of the 3rd finger with 4 mm medial displacement. Acute transverse nondisplaced fracture in the distal aspect of the proximal phalanx of the 4th finger.
== END 2018-01-08 23:28 | disposition home or self-care (01) ==
LOC: ED 15:03
DX: S62.612A Displaced fracture of proximal phalanx of right middle finger, initial encounter for closed fracture (principal); W01.0XXA Fall on same level from slipping, tripping and stumbling without subsequent striking against object, initial encounter; Y92.410 Unspecified street and highway as the place of occurrence of the external cause